=== PATIENT | female | born 1970 | race Caucasian/White ===

== ENCOUNTER → 2016-09-21 | Outpatient (CLI) | payer BC ==
[2016-09-21 08:03] LABS: Basophils % (A) 1 %; CH 26.3; CHCM 32.2; Eosinophils # (A) 0.2 k/uL (0-0.7); Eosinophils % (A) 3 %; HCT 36.8 % (34.0-46.0); HDW 2.28; HGB 12.3 gm/dL (11.4-16.0); Luc # (Auto) 0.24; Luc % (Auto) 4; Lymphocytes # (A) 2.3 k/uL (1.0-4.8); Lymphocytes % (A) 35 %; MCH 27.5 pg (25.0-35.0); MCHC 33.6 g/dL (31.0-37.0); MCV 82.1 fL (80.0-100.0); Mean Platelet Volume 7.4; Monocytes # (A) 0.4 k/uL (0-1.0); Monocytes % (A) 6 %; Neutrophils # (A) 3.5 k/uL (1.3-7.7); Neutrophils % (A) 52 %; RBC 4.48 m/uL (3.80-5.40); RDW 14.3 % (11.5-15.5); WBC 6.7 k/uL (3.8-10.6)
[2016-09-21 11:47] LABS: ALT 38 U/L (9-52); AST 24 U/L (14-36); Alkaline Phosphatase 67 U/L (38-126); Anion Gap 10 mmol/L; Blood Urea Nitrogen 15 mg/dL (7-17); Calcium 9.7 mg/dL (8.4-10.2); Carbon Dioxide 26 mmol/L (22-30); Chloride 105 mmol/L (98-107); Cholesterol 212 mg/dL (<200); Glucose 105 mg/dL (74-99); HDL Cholesterol 71 mg/dL (40-60); Non-African American GFR(MDRD) >60 (>60 ml/min/1.73 sqM); Sodium 141 mmol/L (137-145); Total Bilirubin 0.6 mg/dL (0.2-1.3); Triglycerides 101 mg/dL (<150)
== END | disposition home or self-care (01) ==
LOC: LABWHC1 07:45
PROVIDERS: ATTEND Family Medicine
DX: E03.8 Other specified hypothyroidism (principal); R07.9 Chest pain, unspecified
CPT/HCPCS: 36415; 80053; 80061; 83090; 84439; 84443; 85025; 86141

== ENCOUNTER → 2016-09-30 | Outpatient (CLI) | payer BC ==
--- NOTE | 2016-09-30 18:26 | P.STRESS ---
- Stress Test Note Stress Test Results/Findings: Exam Performed: stress test Exam Date: 09/30/16 Height: 5 ft 7 in Weight: 106.594 kg Protocol: nato Stage: 3 Duration of Exercise: 7:00 Resting Heart Rate: 81 Resting Blood Pressure: 129/86 Maximum Achieved Heart Rate: 159 Maximum Achieved Blood Pressure: 191/67 85% PMHR: 148 100% PMHR: 174 METS: 8.5 Technologist Comment: Stress Test Results/Findings: Baseline rhythm is sinus mechanism, rate of 81, normal axis and intervals. Patient exercised for 7 minutes on Nato protocol, reaching a peak rate of 159 bpm, equal to 91% maximum predicted heart rate. Test was terminated secondary to fatigue, there was no chest pain. Peak blood pressure 191/67 mmHg. EKG monitoring shows [address] segment depression at peak exercise that resolved in recovery. Impression: 1. Average exercise tolerance with no chest pain. 2. Borderline positive EKG stress testing was [address] segment depression. 3. If clinically indicated and imaging stress test would be helpful to further evaluate the findings.
== END | disposition home or self-care (01) ==
LOC: RADNMMAIN 11:03
PROVIDERS: ATTEND Family Medicine
DX: R07.9 Chest pain, unspecified (principal)
CPT/HCPCS: 93017

== ENCOUNTER → 2016-10-10 | Outpatient (CLI) | payer BC ==
--- NOTE | 2016-10-10 11:55 | P.STRESS ---
- Stress Test Note Stress Test Results/Findings: Exam Performed: NM stress cardiolite complete Exam Date: 10/10/16 Reason for Exam: Chest pain Height: 5 ft 7 in Weight: 106.594 kg Protocol: Ori Cardiolite Stage: 2 Duration of Exercise: 8:00 Resting Heart Rate: 61 Resting Blood Pressure: 118/77 Maximum Achieved Heart Rate: 155 Maximum Achieved Blood Pressure: 163/68 85% PMHR: 148 100% PMHR: 174 METS: 9.7 Technologist Comment: Stress Test Results/Findings: Resting EKG shows a normal sinus rhythm with normal IN interval and QRS duration and normal ST-T abuse. No ST segment depression suggestive ischemia is noted. Patient did not complain of any chest pain during the test. Isolated PVCs were noted Conclusion EKG portion of the stress test is not suggestive ischemia. Patient's exercise tolerance is normal. Patient did not complain of any anginal pain during the test. Isolated PVCs were noted. The results of the nuclear study will follow.
--- NOTE | 2016-10-10 12:08 | NM ---
EXAMINATION TYPE: NM stress cardiolite complete DATE OF EXAM: 10/10/2016 COMPARISON: NONE HISTORY: Family history of heart attack presents with chest tightness and difficulty in breathing. TECHNIQUE: After the intravenous administration of 10.9 mCi Tc 99m Sestamibi - Rest images obtained 45 minutes post injection. The patient exercised using a ELLEN protocol and 1 minute prior to peak exercise was injected with 27.2 mCi Tc 99m Sestamibi - Stress images obtained 10 minutes post injecti on. FINDINGS: Targeted heart rate was achieved during performance of the study. Review of stress and rest SPECT noé ges demonstrates no distinct perfusion abnormality. Diminished color intensity involving anterior wa ll is seen on stress and rest images may be artifactual, old infarct is not entirely excluded. Consid er EKG correlation. Gated analysis shows normal wall motion with an estimated left ventricular ejecti on fraction of 62 %. IMPRESSION: No convincing scintigraphic evidence for reversible ischemia
--- NOTE | 2016-10-10 15:00 | EST ---
Stress Test Results/Findings: Exam Performed: NM stress cardiolite complete Exam Date: 10/10/16 Reason for Exam: Chest pain Height: 5 ft 7 in Weight: 106.594 kg Protocol: Ori Cardiolite Stage: 2 Duration of Exercise: 8:00 Resting Heart Rate: 61 Resting Blood Pressure: 118/77 Maximum Achieved Heart Rate: 155 Maximum Achieved Blood Pressure: 163/68 85% PMHR: 148 100% PMHR: 174 METS: 9.7 Technologist Comment: Stress Test Results/Findings: Resting EKG shows a normal sinus rhythm with normal AL interval and QRS duration and normal ST-T abuse. No ST segment depression suggestive ischemia is noted. Patient did not complain of any chest pain during the test. Isolated PVCs were noted Conclusion EKG portion of the stress test is not suggestive ischemia. Patient's exercise tolerance is normal. Patient did not complain of any anginal pain during the test. Isolated PVCs were noted. The results of the nuclear study will follow. MARISEL
== END | disposition home or self-care (01) ==
LOC: RADNMMAIN 08:46
PROVIDERS: ATTEND Family Medicine
DX: R94.39 Abnormal result of other cardiovascular function study (principal)
CPT/HCPCS: 93017; 78452; A9500

== ENCOUNTER → 2017-11-09 | Outpatient (CLI) | payer BC ==
--- NOTE | 2017-11-09 15:55 | XR ---
EXAMINATION TYPE: XR knee complete LT DATE OF EXAM: 11/09/2017 CLINICAL HISTORY: pain TECHNIQUE: Three views of the left knee are obtained. COMPARISON: None. FINDINGS: There is no acute fracture/dislocation. The tri-compartment joint spaces appear mildly na rrowed. The overlying soft tissue appears unremarkable. Suprapatellar joint effusion noted. IMPRESSION: There is no acute fracture or dislocation ICD 10 NO FRACTURE, INITIAL EVALUATION
--- NOTE | 2017-11-14 11:37 | MM ---
Reason for exam: screening (asymptomatic). Last mammogram was performed 2 years and 7 months ago. History: Family history of breast cancer in maternal aunt at age 65. Benign US biopsy breast VAD LT of the left breast, July 26, 2013. Took hormonal contraceptives for 7 years. Physical Findings: A clinical breast exam by your physician is recommended on an annual basis and results should be correlated with mammographic findings. MG Screening Mammo w CAD Bilateral CC and MLO view(s) were taken. Prior study comparison: April 01, 2015, bilateral MG 3d diag mammo w/cad [facility]. July 26, 2013, left breast MG diagnostic mammo LT wo CAD. The breast tissue is heterogeneously dense. This may lower the sensitivity of mammography. Previous mammotome biopsy in the left breast. No significant changes when compared with prior studies. ASSESSMENT: Negative, BI-RAD 1 RECOMMENDATION: Routine screening mammogram of both breasts in 1 year. Patient should continue monthly self breast exams. A negative report should not preclude additional follow up of suspicious palpable abnormalities.
== END | disposition home or self-care (01) ==
LOC: RADMAMWWP 15:35
PROVIDERS: ATTEND Family Medicine
DX: Z12.31 Encounter for screening mammogram for malignant neoplasm of breast (principal); M25.562 Pain in left knee
CPT/HCPCS: 77067

== ENCOUNTER → 2021-11-12 | Outpatient (CLI) | payer BC ==
--- NOTE | 2021-11-16 09:52 | MM ---
Reason for Exam: Screening (asymptomatic). Last mammogram was performed 4 year(s) and 1 month(s) ago. Patient History: Menarche at age 13. First Full-Term at age 29. Patient used Hormonal Contraceptives for 7 years. 07/26/2013, Benign Core Biopsy on the left side. Maternal aunt had breast cancer, age 65. Last menstrual period: 11/03/2021 Risk Values: [place] 5 year model risk: 1.3%. NCI Lifetime model risk: 11.4%. Prior Study Comparison: 07/26/2013 Left Diagnostic Mammogram, [facility]. 04/01/2015 Bilateral Diagnostic Mammogram, [facility]. 11/09/2017 Bilateral Screening Mammogram, [facility]. Tissue Density: The breast tissue is extremely dense which could obscure a lesion on mammography. Findings: Analyzed By CAD. No suspicious groups of microcalcifications, spiculated or lobular masses, architectural distortion or other secondary signs of malignancy are mammographically apparent. Overall Assessment: Benign, BI-RAD 2 Management: Screening Mammogram of both breasts in 1 year. A negative mammogram report should not preclude additional follow up of suspicious palpable abnormalities. Patient should continue monthly self breast exam. A clinical breast exam by your physician is recommended on an annual basis and results should be correlated with mammographic findings. Electronically signed and approved by: Bravo Michelle D.O. Radiologis
== END | disposition home or self-care (01) ==
LOC: RADMAMWWP 14:46
PROVIDERS: ATTEND Family Medicine
DX: Z12.31 Encounter for screening mammogram for malignant neoplasm of breast (principal); Z80.3 Family history of malignant neoplasm of breast
CPT/HCPCS: 77067

== ENCOUNTER → 2022-08-18 | Outpatient (CLI) | payer BC ==
[2022-08-18 22:49] LABS: HCT 43.2 % (37.2-46.3); HGB 13.1 d/dL (12.0-15.0); MCH 25.5 pg (27.0-32.0); MCHC 30.3 d/dL (32.0-37.0); MCV 84.2 FL (80.0-97.0); Mean Platelet Volume 10.1 FL (9.5-12.2); NRBC Per 100 WBC 0 X 10*3/uL (0.00-0.01); Platelet Count 409 X 10*3/uL (140-440); RBC 5.13 X 10*6/uL (4.10-5.20); RDW 15.2 % (11.5-14.5); WBC 8.32 X 10*3/uL (4.50-10.00)
[2022-08-19 03:21] LABS: ALT 31 U/L (8-44); AST 22 U/L (13-35); Albumin 4.6 d/dL (3.8-4.9); Albumin/Globulin Ratio 1.59 Ratio (1.60-3.17); Alkaline Phosphatase 89 U/L (41-126); Blood Urea Nitrogen 18.5 mg/dL (9.0-27.0); Chloride 98 mmol/L (96-109); Globulin 2.9 d/dL (1.6-3.3); Glucose 98 mg/dL (70-110); Iron 42 UG/DL (50-170); Potassium 4.3 mmol/L (3.5-5.5); Sodium 139 mmol/L (135-145); Total Bilirubin 0.3 mg/dL (0.3-1.2); Total Protein 7.5 d/dL (6.2-8.2)
== END | disposition home or self-care (01) ==
LOC: LABWHC1 14:21
PROVIDERS: ATTEND Surgery
DX: Z71.51 Drug abuse counseling and surveillance of drug abuser (principal); E66.01 Morbid (severe) obesity due to excess calories; K90.89 Other intestinal malabsorption; E55.9 Vitamin D deficiency, unspecified; R00.1 Bradycardia, unspecified
CPT/HCPCS: 36415; 80053; 80323; 82306; 82607; 82746; 83036; 83540; 84425; 85027; 93005

== ENCOUNTER → 2022-08-18 | Outpatient (CLI) | payer BC ==
[2022-08-18 13:06] VITALS: BP 129/86; PULSE 74; RESP 16; TEMP 98; BMI 41.6
--- NOTE | 2022-08-18 16:29 | P.HPBAR ---
Bariatric H&P - History & Physicial H&P Date: 08/18/22 History & Physicial: Visit/CC: Initial Consult Patient initial contact: Initial weight: 120.656 kg Initial weight in pounds: 266.00 Height: 5 ft 7 in Initial BMI: 41.6 Last weight: Current weight: 120.656 kg Current weight in pounds: 266.00 Current BMI: 41.6 Latta body weight (based on NIH guidelines): 61.235 kg Excess body weight loss: 0.0% The patient is a 52 year-old F who presents for Bariatric Assessment. Patient presents to discuss bariatric surgery options. BMI 41.6. Patient with history of GERD that is mild, hypercholesterolemia, hypothyroidism, depression. Only surgical history is breast biopsy in the past. No tobacco use. No history of DVT or dysphagia. Patient is a teacher Review of Systems The patient denies any acute changes in vision or hearing, no dysphagia or odynophagia, no chest pain or shortness of breath, no dysuria or hematuria, no headache, no runny nose, no rectal bleeding or melena, no unexplained weight loss Past Medical History Past Medical History: Thyroid Disorder Additional Past Medical History / Comment(s): HX OF GESTATIONAL DIABETES, "TOE FUNGUS" History of Any Multi-Drug Resistant Organisms: None Reported, ESBL Year Discovered:: 08/31/20 MDRO Source:: ESBL URINE Additional Past Surgical History / Comment(s): LEFT BREAST BX . Additional Past Anesthesia/Blood Transfusion Reaction / Comm: HAS NEVER RECEIVED ANESTHESIA Smoking Status: Unknown if ever smoked - Past Family History Sister(s) Family Medical History: Deep Vein Thrombosis (DVT) Surgical - Exam Vital Signs Temp Pulse Resp BP 98 F 74 16 129/86 08/18/22 13:04 08/18/22 13:04 08/18/22 13:04 08/18/22 13:04 Physical exam: General: Well-developed, well-nourished HEENT: Normocephalic, sclerae nonicteric Abdomen: Nontender, nondistended Extremities: No edema Neuro: Alert and oriented Bariatric Assessment & Plan (1) Morbid obesity with BMI of 40.0-44.9, adult Narrative/Plan: 52-year-old female with morbid obesity and associated comorbidities. Options of bariatric surgery reviewed in detail with the patient. Discussed laparoscopic sleeve gastrectomy and gastric bypass and the associated risks. Anticipated average weight loss and postoperative course reviewed as well. Patient remains interested in sleeve gastrectomy at this time. We will plan preoperative EGD. We'll obtain appropriate documentation from primary care team. Patient will have psychological evaluation scheduled. We will see patient back in office following upper endoscopy. Status: Acute Bariatric Checklist Checklist: Plan: Checklist: EGD: 1. Hiatal hernia: 2. H. Pylori: HgbA1c: Vitamin D: Smoking: Never smoker Primary care physician referral: Dulce Maria Aguila Psychiatry clearance: Cardiology clearance: Sleep study: Diet journal: VTE risk score: VTE risk level: Rehab needs at discharge:
== END ==
LOC: BARWHC3 12:49
PROVIDERS: ATTEND Surgery
DX: E66.01 Morbid (severe) obesity due to excess calories (principal); Z68.41 Body mass index [BMI] 40.0-44.9, adult; K21.9 Gastro-esophageal reflux disease without esophagitis; E07.9 Disorder of thyroid, unspecified; Z98.84 Bariatric surgery status
CPT/HCPCS: 99202

== ENCOUNTER 2022-10-04 06:41 | Day surgery (SDC) | payer BC ==
[2022-10-03 08:38] VITALS: BMI 41.8
[~2022-10-04 06:41] MED LIST: LACTATED RINGERS 1,000 ML IV SCH; LIDOCAINE 1% (10MG/ML) FOR IV START INTRADERMA PRN
[2022-10-04] MEDS ORDERED: ONDANSETRON 4 MG/2 ML VIAL IVP PRN (07:00)
[2022-10-04 07:27] VITALS: TEMP 97.1
[2022-10-04] MEDS ORDERED: LIDOCAINE 2% INJ 20 MG/ML (2 ML VIAL) ONE (07:37)
[2022-10-04] MEDS ORDERED: PROPOFOL 10 MG/ML 20 ML VIAL IV ONE (07:37)
--- NOTE | 2022-10-04 07:40 | P.GSHP ---
History of Present Illness H&P Date: 10/04/22 Chief Complaint: GERD Eag-imto-ros female here today for upper endoscopy. Patient with complaints of intermittent reflux that is mild. Mostly during her . Patient is being evaluated for possible sleeve gastrectomy. No other changes to the recent history and physical Past Medical History Past Medical History: Hyperlipidemia, Thyroid Disorder Additional Past Medical History / Comment(s): HX OF GESTATIONAL DIABETES, "TOE FUNGUS" History of Any Multi-Drug Resistant Organisms: None Reported, ESBL Date of last positivie culture/infection: 08/31/20 MDRO Source:: ESBL URINE Additional Past Surgical History / Comment(s): LEFT BREAST BX . Additional Past Anesthesia/Blood Transfusion Reaction / Comment(s): HAS NEVER RECEIVED ANESTHESIA Smoking Status: Never smoker, Unknown if ever smoked - Past Family History Sister(s) Family Medical History: Deep Vein Thrombosis (DVT) Medications and Allergies Home Medications Medication Instructions Recorded Confirmed Type Levothyroxine Sodium [Synthroid] 25 mcg PO DAILY 09/24/13 10/03/22 History Sertraline [Zoloft] 200 mg PO DAILY 08/18/22 10/03/22 History Rosuvastatin [Crestor] 5 mg PO DAILY 10/03/22 10/03/22 History buPROPion [Wellbutrin] 150 mg PO DAILY 10/03/22 10/03/22 History Allergies Allergy/AdvReac Type Severity Reaction Status Date / Time No Known Allergies Allergy Verified 10/04/22 07:12 Surgical - Exam Vital Signs Temp Pulse Resp BP Pulse Ox 97.1 F L 66 20 128/68 95 10/04/22 07:25 10/04/22 07:25 10/04/22 07:25 10/04/22 07:25 10/04/22 07:25 Physical exam: General: Well-developed, well-nourished HEENT: Normocephalic, sclerae nonicteric Abdomen: Nontender, nondistended Extremities: No edema Neuro: Alert and oriented Assessment and Plan (1) GERD (gastroesophageal reflux disease) Narrative/Plan: Will proceed with upper endoscopy at this time Current Visit: Yes Status: Acute Code(s): K21.9 - GASTRO-ESOPHAGEAL REFLUX DISEASE WITHOUT ESOPHAGITIS SNOMED Code(s): 476967842
--- NOTE | 2022-10-04 07:47 | P.PCN ---
Date of Procedure: 10/04/22 Procedure(s) Performed: Preoperative Dx: GERD, presurgical Postoperative Dx: Mild gastritis Procedure: EGD with Bx Anesthesia: Sedation Endoscopist: Dr. Aguila Specimens: Antrum Endoscopic Procedure: The patient was on the endoscopy table in the left decubitus position. The Olympus gastroscope was inserted into the oropharynx and passed under direct visualization to the region of the third portion of the duodenum. From that point the scope was slowly withdrawn inspecting all surfaces carefully. There were no neoplastic inflammatory or polypoid lesions throughout the duodenum. The pylorus was widely patent. The stomach was carefully inspected. There was mild gastritis present. A biopsy of the antrum took place to rule out H. pylori. Retroflexion revealed a normal hiatus. The esophagus was then carefully examined. There were no neoplastic inflammatory or polypoid lesions throughout the visualized esophagus. The patient was then taken to the recovery room in stable condition per anesthesia guidelines. Recommendations: Await biopsy results. Follow-up bariatric clinic.
[2022-10-04 08:17] VITALS: BP 133/75; PULSE 57; RESP 18
== END 2022-10-04 08:27 | disposition home or self-care (01) ==
LOC: ORWHC2ENDO 06:41
PROVIDERS: ATTEND Surgery
DX: K29.50 Unspecified chronic gastritis without bleeding (principal); K21.9 Gastro-esophageal reflux disease without esophagitis; E78.5 Hyperlipidemia, unspecified; E07.9 Disorder of thyroid, unspecified; Z86.19 Personal history of other infectious and parasitic diseases; Z98.890 Other specified postprocedural states; Z82.49 Family history of ischemic heart disease and other diseases of the circulatory system; Z79.890 Hormone replacement therapy; Z79.899 Other long term (current) drug therapy
CPT/HCPCS: 81025; 88305; 43239; J2704; J2001

== ENCOUNTER → 2022-10-31 | Outpatient (CLI) | payer BC ==
[2022-10-31 10:35] VITALS: BMI 42.1
== END ==
LOC: BARWHC3 08:46
PROVIDERS: ATTEND Surgery
DX: E66.01 Morbid (severe) obesity due to excess calories (principal); Z71.3 Dietary counseling and surveillance; Z68.41 Body mass index [BMI] 40.0-44.9, adult
CPT/HCPCS: 97804

== ENCOUNTER → 2022-11-08 | Outpatient (CLI) | payer BC ==
[2022-11-08 16:38] VITALS: BP 147/87; PULSE 84; BMI 42.0
--- NOTE | 2022-11-08 16:55 | P.BASOAP ---
Subjective Progress Note Date: 11/08/22 Principal diagnosis: Morbid obesity Patient returns for recheck after recent EGD. EGD showed mild gastritis. Biopsies negative. Weights about the same at 268. No other changes to her history and physical. Patient would like to proceed with surgery before the end of the year. Objective - Vital Signs Vital signs: Vital Signs Temp Pulse 84 11/08/22 16:36 Resp BP 147/87 11/08/22 16:36 Pulse Ox FiO2 Intake & Output 11/07/22 11/08/22 11/08/22 18:59 06:59 18:59 Weight 121.563 kg - Exam Abdomen: Soft, nontender, nondistended Assessment/Plan (1) Morbid obesity with BMI of 40.0-44.9, adult Narrative/Plan: 53-year-old female with morbid obesity. We'll tenderly scheduled for laparoscopic robotic-assisted sleeve gastrectomy in early February. The risks of bleeding, infection, stenosis, stricture, leak, abscess, fistula formation, peritonitis, poor weight loss, reflux, vomiting, conversion to an open procedure, aborting sleeve gastrectomy, HI, PE, DVT, and were discussed. The patient understands and wishes to proceed. Plan: Date: 11/08/22 Initial Weight: 120.656 kg Initial BMI: 41.6 Current Weight: 121.563 kg Current BMI: 42.0 Type of Surgery: Total Volume in Band: Previous Volume: Volume Removed: Volume Added: Band Size:
== END ==
LOC: BARWHC3 15:43
PROVIDERS: ATTEND Surgery
DX: E66.01 Morbid (severe) obesity due to excess calories (principal); Z68.41 Body mass index [BMI] 40.0-44.9, adult
CPT/HCPCS: 99211

== ENCOUNTER → 2023-02-10 | Outpatient (CLI) | payer BC ==
[2023-02-11 02:22] LABS: Basophils # (A) 0.05 X 10*3/uL (0.00-0.10); Basophils % (A) 0.6 %; Eosinophils # (A) 0.12 X 10*3/uL (0.04-0.35); Eosinophils % (A) 1.4 %; HCT 39.9 % (37.2-46.3); HGB 12.2 g/dL (12.0-15.0); Lymphocytes # (A) 2.05 X 10*3/uL (0.90-5.00); Lymphocytes % (A) 24.4 %; MCH 25.4 pg (27.0-32.0); MCHC 30.6 g/dL (32.0-37.0); Mean Platelet Volume 9.9 FL (9.5-12.2); Monocytes # (A) 0.55 X 10*3/uL (0.20-1.00); Monocytes % (A) 6.5 %; NRBC Per 100 WBC 0 X 10*3/uL (0.00-0.01); Neutrophils # (A) 5.59 X 10*3/uL (1.80-7.70); Neutrophils % (A) 66.6 %; Platelet Count 424 X 10*3/uL (140-440); RBC 4.81 X 10*6/uL (4.10-5.20); RDW 14.8 % (11.5-14.5)
[2023-02-11 02:49] LABS: ALT 29 U/L (8-44); AST 24 U/L (13-35); Albumin 4.3 g/dL (3.8-4.9); Albumin/Globulin Ratio 1.54 Ratio (1.60-3.17); Alkaline Phosphatase 75 U/L (41-126); BUN/Creat Ratio 21.89 Ratio (12.00-20.00); Blood Urea Nitrogen 19.7 mg/dL (9.0-27.0); Calcium 9.9 mg/dL (8.7-10.3); Chloride 101 mmol/L (96-109); Globulin 2.8 g/dL (1.6-3.3); Glucose 76 mg/dL (70-110); Potassium 4.2 mmol/L (3.5-5.5); Sodium 139 mmol/L (135-145); Total Bilirubin 0.3 mg/dL (0.3-1.2); Total Protein 7.1 g/dL (6.2-8.2)
== END | disposition home or self-care (01) ==
LOC: LABPAT 15:50
PROVIDERS: ATTEND Surgery
DX: Z00.00 Encounter for general adult medical examination without abnormal findings (principal)
CPT/HCPCS: 80053; 85025; 86850; 86900; 86901

== ENCOUNTER 2023-02-13 12:40 | Observation (INO) | payer BC ==
--- NOTE | 2023-02-13 08:44 | P.GSHP ---
History of Present Illness H&P Date: 02/13/23 Chief Complaint: Morbid obesity 52-year-old female here for elective sleeve gastrectomy. Patient first seen in the bariatric center in October. Patient with comorbidities including hypercholesterolemia GERD hypothyroidism depression. No tobacco use. No history of DVT or dysphagia. Underwent subsequent EGD showing mild gastritis. BMI 41 now 42. Past Medical History Past Medical History: GERD/Reflux, Hyperlipidemia, Osteoarthritis (OA), Thyroid Disorder Additional Past Medical History / Comment(s): HX OF GESTATIONAL DIABETES, left middle toe is bruised from dropping something on it History of Any Multi-Drug Resistant Organisms: None Reported, ESBL Date of last positivie culture/infection: 08/31/20 MDRO Source:: ESBL URINE Past Surgical History: Breast Surgery Additional Past Surgical History / Comment(s): LEFT BREAST BX., EGD Past Anesthesia/Blood Transfusion Reactions: No Reported Reaction Additional Past Anesthesia/Blood Transfusion Reaction / Comment(s): HAS NEVER RECEIVED ANESTHESIA Smoking Status: Never smoker - Past Family History Sister(s) Family Medical History: Deep Vein Thrombosis (DVT) Medications and Allergies Home Medications Medication Instructions Recorded Confirmed Type Levothyroxine Sodium [Synthroid] 25 mcg PO DAILY 09/24/13 02/08/23 History Sertraline [Zoloft] 200 mg PO DAILY 08/18/22 02/08/23 History Rosuvastatin [Crestor] 5 mg PO DAILY 10/03/22 02/08/23 History buPROPion [Wellbutrin] 150 mg PO DAILY 10/03/22 02/08/23 History Allergies Allergy/AdvReac Type Severity Reaction Status Date / Time No Known Allergies Allergy Verified 02/08/23 15:31 Surgical - Exam Physical exam: General: Well-developed, well-nourished HEENT: Normocephalic, sclerae nonicteric Abdomen: Nontender, nondistended Extremities: No edema Neuro: Alert and oriented Assessment and Plan (1) Morbid obesity with BMI of 40.0-44.9, adult Narrative/Plan: 52-year-old female with morbid obesity. We'll proceed with the da Poonam assisted laparoscopic sleeve gastrectomy, possible open at this time. The risks of bleeding, infection, stenosis, stricture, leak, abscess, fistula formation, peritonitis, poor weight loss, reflux, vomiting, conversion to an open proc edure, aborting sleeve gastrectomy, DE, PE, DVT, and were discussed. The patient understands and wishes to proceed. Status: Acute Code(s): E66.01 - MORBID (SEVERE) OBESITY DUE TO EXCESS CALORIES; Z68.41 - BODY MASS INDEX [BMI] 40.0-44.9, ADULT SNOMED Code(s): 473233567
[~2023-02-13 12:40] MED LIST changes: +ACETAMINOPHEN TAB 500 MG TAB PO PRN; +ENOXAPARIN 40 MG/0.4 ML SYRINGE SQ PRN; -LIDOCAINE 1% (10MG/ML) FOR IV START INTRADERMA PRN; +MIDAZOLAM 2 MG/2 ML VIAL IV PRN; +SCOPOLAMINE 1 MG/72 HR PATCH TRANSDERM ONE; +ceFAZolin 3 GM in SODIUM CHLORIDE 0.9% 100 ML IVPB PRN
[2023-02-13] MEDS: DEXAMETHASONE SOD PHOSPHATE 4 MG/ML 1 ML VIAL IV ONE (13:59)
[2023-02-13] MEDS ORDERED: FAMOTIDINE 20 MG/2 ML VIAL IVP ONE (13:59)
[2023-02-13] MEDS: ONDANSETRON 4 MG/2 ML VIAL IVP ONE (13:59)
[2023-02-13] MEDS ORDERED: LIDOCAINE 1% INJ 10MG/ML (20 ML MDV) ONE (14:30)
[2023-02-13] MEDS ORDERED: GLYCOPYRROLATE 0.2 MG/ML 2 ML VIAL ONE (14:30)
[2023-02-13] MEDS ORDERED: ROCURONIUM 10 MG/ML (5 ML VIAL) IV ONE (14:30)
[2023-02-13] MEDS ORDERED: HYDROmorphone (PF) 1 MG/ML ONE (14:30)
[2023-02-13] MEDS ORDERED: fentaNYL (PF) 50 MCG/ML 2 ML AMP ONE (14:30)
[2023-02-13] MEDS ORDERED: NEOSTIGMINE 1 MG/ML 10 ML VIAL ONE (14:30)
[2023-02-13] MEDS ORDERED: SUCCINYLCHOLINE CHLORIDE 200 MG/10 ML VIAL IV ONE (14:30)
[2023-02-13] MEDS ORDERED: MIDAZOLAM 2 MG/2 ML VIAL ONE (14:30)
[2023-02-13] MEDS ORDERED: PROPOFOL 10 MG/ML 20 ML VIAL IV ONE (14:30)
[2023-02-13] MEDS ORDERED: BUPIVACAINE (PF) 0.25% 30 ML VIAL SQ ONE (14:34)
[2023-02-13] MEDS ORDERED: HYDROmorphone 1 MG/ML 1 ML SYRINGE IVP PRN (16:50)
[2023-02-13] MEDS ORDERED: diphenhydrAMINE 50 MG/ML 1 ML VIAL IVP PRN (16:50)
[2023-02-13] MEDS ORDERED: DEXAMETHASONE SOD PHOSPHATE 4 MG/ML 1 ML VIAL IVP PRN (16:50)
[2023-02-13] MEDS ORDERED: NALOXONE 0.4 MG/ML 1 ML VIAL IV PRN (16:50)
--- NOTE | 2023-02-13 16:58 | P.OP ---
Date of Procedure: 02/13/23 Procedure(s) Performed: PREOPERATIVE DIAGNOSIS: Morbid obesity, GERD, hypercholesterolemia POSTOPERATIVE DIAGNOSIS: Same PROCEDURE: Da Poonam assisted laparoscopic sleeve gastrectomy SURGEON: Mingo EBL: 15 mL ANESTHESIA: General COMPLICATIONS: None OPERATIVE PROCEDURE: Patient was placed in the operating table in the supine position. The patient was then placed under general anesthesia at that time. The abdomen was prepped and draped in the usual sterile fashion. A 5 mm optical trocar was placed in the left upper quadrant 20 cm inferior to the xiphoid process. Insufflation took place up to 15 mmHg. No adhesions were seen. A 5 mm subxiphoid incision was made and the medium Reginald retractor was used to elevate the left lobe of liver anteriorly. This was held in place using the fixed arm retractor. An additional 12 mm trocar was placed in the right paramedian location and 2 additional 8 mm trochars were placed in the left upper quadrant one medial and one lateral to the initially placed optical trocar. All of these trochars were placed along the same plane. The initial 5 was then switched to an 8 mm trocar. The robot was then docked appropriately. The 8 mm camera was placed in the left paramedian trocar site down viewing. A fenestrated bipolar was placed in arm 1, arm 3 had the vessel sealer, arm 4 had the small grasper retractor. The hiatus was inspected and there was no visible hiatal hernia. At that point I moved to the distal aspect of the greater curvature the stomach. The short gastric vasculature were divided using the vessel sealer. This dissection took place distally until we were 4 cm from the pylorus. The posterior adhesions were divided as well. The dissection then took place proximally along the stomach until the posterior short gastrics were divided and the fundus of the stomach was fully mobilized. Once the stomach was fully mobilized the blunt tipped 40-Barbadian bougie dilator was advanced into the stomach and advanced all the way to the prepyloric location. The patient's stomach by palpation seemed to be of average thickness. The first firing of the stapler was a black load with the staple line reinforcement. A second load was green load with staple line reinforcement. Third load was blue load with staple line reinforcement. On the fourth firing of the load initially it seemed to be firing and cutting properly but approximately 1/3-1[address] the staple load I noticed that the staple line was bunching together and it appeared the blade was not cutting the tissue. The stapler was then opened. A small defect in the wall of the stomach was noted. I was able to place a new blue load without staple line reinforcement medially and this appeared to close the defect Solano and I was able to visualize laila along the length of the sleeve at that point. 2 subsequent firings of the blue load stapler took place completing the gastrectomy. Staple line reinforcement was again used on the fourth firing of the blue load. The last firing the stapler did not use staple line reinforcement as it was only traversing less than a centimeter of the stomach. The stomach was then placed in the right upper quadrant after it was fully excised. The oral gastric tube was reinserted. The stomach was insufflated with approximately 100 mL of methylene blue. No evidence of leak or obstruction was seen. Pressure was then dropped to 8 mm for 2-3 minutes. The staple line was inspected and no bleeding was seen. I decided to imbricate the staple line over the section where the misfiring of the stapler took place. This covered a length of approximately 2-3 cm. This was an absorbable 30V lock suture. This did not appear to overly narrow the sleeve. I was able to advance an oral gastric tube through that section without meeting resistance. Tisseel fibrin glue was then used along the length of the staple line. The robot was then undocked. The da Poonam laparoscope was used and the stomach was removed from the 12 mm trocar site without difficulty. The fascia at the 12mm site was closed using [id number] 0 Vicryl sutures with the laparoscopic suture passer and Hari Kolby technique. The insufflation was evacuated. The skin at all 5 incisions were closed using 4-0 Monocryl sutures. Skin glue was then applied. DISPOSITION: Stable to recovery room. Operative findings discussed with the patient's .
[2023-02-13] MEDS: HYDROmorphone 0.5 MG/0.5 ML SYRINGE IVP PRN ×3 (17:23→22:36)
[2023-02-13] MEDS: ONDANSETRON 4 MG/2 ML VIAL IVP PRN (18:21)
[2023-02-13] MEDS: ACETAMINOPHEN IV (For NPO) 1,000 MG in EMPTY BAG 1 BAG IVPB SCH ×2 (18:22→18:36)
[2023-02-13] MEDS ORDERED: LACTATED RINGERS 1,000 ML IV ONE ×2 (18:24)
[2023-02-13] MEDS: ALBUTEROL NEBULIZED 2.5 MG/3 ML INHALATION SCH (18:45)
[2023-02-13 19:12] LABS: Glucose,Whole Blood 134 mg/dL (70-110)
[2023-02-13] MEDS: SIMETHICONE 80 MG CHEWABLE PO PRN (21:02)
[2023-02-13] MEDS: 0.9% NACL WITH KCL 20 MEQ/L 1,000 ML IV SCH (22:36)
[2023-02-14] MEDS: ONDANSETRON 4 MG/2 ML VIAL IVP ONE (00:03)
[2023-02-14] MEDS: DEXAMETHASONE SOD PHOSPHATE 4 MG/ML 1 ML VIAL IV ONE (00:03)
[2023-02-14] MEDS: ONDANSETRON 4 MG/2 ML VIAL IVP PRN ×2 (00:28→13:38)
[2023-02-14] MEDS: ACETAMINOPHEN IV (For NPO) 1,000 MG in EMPTY BAG 1 BAG IVPB SCH ×5 (00:29→23:28)
[2023-02-14] MEDS: SIMETHICONE 80 MG CHEWABLE PO PRN ×2 (02:24→17:34)
[2023-02-14] MEDS: HYDROmorphone 0.5 MG/0.5 ML SYRINGE IVP PRN (03:04)
[2023-02-14] MEDS: 0.9% NACL WITH KCL 20 MEQ/L 1,000 ML IV SCH ×3 (05:35→17:35)
[2023-02-14] MEDS: HYOSCYAMINE ORAL DROPS 1.875 MG/15 ML BOTTLE PO PRN ×2 (05:37→17:34)
[2023-02-14] MEDS: ENOXAPARIN 40 MG/0.4 ML SYRINGE SQ SCH ×2 (06:29→17:34)
[2023-02-14] MEDS: PANTOPRAZOLE 40 MG/10 ML VIAL IV SCH (07:53)
[2023-02-14] MEDS: ALBUTEROL NEBULIZED 2.5 MG/3 ML INHALATION SCH ×4 (08:20→20:52)
[2023-02-14] MEDS: KETOROLAC 15 MG/ML 1 ML VIAL IVP SCH ×4 (08:37→23:29)
[2023-02-14 10:53] LABS: Basophils # (A) 0.04 X 10*3/uL (0.00-0.10); Basophils % (A) 0.3 %; Eosinophils # (A) 0 X 10*3/uL (0.04-0.35); Eosinophils % (A) 0 %; HGB 11.8 g/dL (12.0-15.0); Lymphocytes # (A) 1.59 X 10*3/uL (0.90-5.00); Lymphocytes % (A) 12.7 %; MCH 26.3 pg (27.0-32.0); MCHC 31.9 g/dL (32.0-37.0); MCV 82.4 FL (80.0-97.0); Mean Platelet Volume 10.2 FL (9.5-12.2); Monocytes # (A) 0.84 X 10*3/uL (0.20-1.00); Monocytes % (A) 6.7 %; NRBC Per 100 WBC 0 X 10*3/uL (0.00-0.01); Neutrophils # (A) 9.97 X 10*3/uL (1.80-7.70); Neutrophils % (A) 79.8 %; Platelet Count 431 X 10*3/uL (140-440); RBC 4.49 X 10*6/uL (4.10-5.20)
[2023-02-14 11:03] VITALS: BMI 41.2
[2023-02-14 11:06] LABS: Blood Urea Nitrogen 12.2 mg/dL (9.0-27.0); Carbon Dioxide 23.2 mmol/L (21.6-31.8); Chloride 103 mmol/L (96-109); Magnesium 2.1 mg/dL (1.5-2.4); Phosphorus 3.1 mg/dL (2.4-5.1); Potassium 4.8 mmol/L (3.5-5.5); Sodium 137 mmol/L (135-145)
--- NOTE | 2023-02-14 12:17 | P.PN ---
Subjective Progress Note Date: 02/14/23 CHIEF COMPLAINT: Morbid obesity HISTORY OF PRESENT ILLNESS: Patient postop day #1 status post laparoscopic sleeve gastrectomy. She did complain of pain. Reports it's tolerable. The nausea has resolved. She has been up and ambulating. No flatus. Denies any nausea or vomiting currently. Denies any difficulty urinating. Afebrile. WBC 12.5 Hgb 11.8 platelets 431. Sodium is 137 potassium is 4.8 creatinine 0.7 magnesium 2.1 Upper GI results pending PHYSICAL EXAM: VITAL SIGNS: Reviewed. GENERAL: Well-developed in no acute distress. ABDOMEN: Soft. Nondistended. abdominal binder in place NEUROLOGIC: Alert and oriented. Cranial nerves II through XII grossly intact. ASSESSMENT: 1. Morbid obesity 2. GERD 3. Hypercholesterolemia 4. Leukocytosis reactive PLAN: -Add IV Toradol scheduled to help with pain control -Awaiting upper GI results before starting bariatric clear liquid diet -Continue IV fluids -Continue pain management -Continue antiemetics -Encourage patient to ambulate -Encourage patient to use incentive spirometer -And DVT prophylaxis Lovenox and GI prophylaxis protonix Physician House Designer note has been reviewed by physician. Signing provider agrees with the documented findings, assessment, and plan of care. I have personally seen and examined the patient, reviewed the LICENSING COORDINATOR /PAs history, exam and MDM and agree with the assessment and plan as written. Based on total visit time, I have performed more than 50% of the visit. As above: Patient feels fairly well today. Pain 2 out of 10. Mild dysphagia symptoms with liquids. Upper GI shows no leak. Intraoperative findings discussed with patient and her in detail. Will plan slow progression through liquid diet phase. Recheck labs tomorrow. Objective - Vital Signs Vital signs: Vital Signs Temp 98.2 F 02/14/23 06:53 Pulse 62 02/14/23 11:31 Resp 17 02/14/23 06:53 BP 149/85 02/14/23 06:53 Pulse Ox 98 02/14/23 11:16 FiO2 Intake & Output 02/13/23 02/14/23 02/14/23 18:59 06:59 18:59 Intake Total 1225 Output Total 15 Balance 1210 Weight 119.5 kg 119.5 kg 119.5 kg Intake: IV 1225 Output: Estimated Blood Loss 15 Other: # Voids 3 - Labs CBC & Chem 7: 02/14/23 05:53 02/14/23 05:53 Labs: Abnormal Lab Results - Last 24 Hours (Table) 02/13/23 02/14/23 Range/Units 19:11 05:53 WBC 12.50 H (4.50-10.00) X 10*3/uL Hgb 11.8 L (12.0-15.0) g/dL Hct 37.0 L (37.2-46.3) % MCH 26.3 L (27.0-32.0) pg MCHC 31.9 L (32.0-37.0) g/dL RDW 15.0 H (11.5-14.5) % Neutrophils # 9.97 H (1.80-7.70) X 10*3/uL Eosinophils # 0 L (0.04-0.35) X 10*3/uL POC Glucose (mg/dL) 134 H (70-110) mg/dL
--- NOTE | 2023-02-14 12:50 | P.CONS ---
History of Present Illness - Reason for Consult Consult date: 02/14/23 - Chief Complaint S/P Post surgery - History of Present Illness * 52-year-old patient with past medical history significant for gastric physical reflux disease, hyperlipidemia, thyroid disorder who has been admitted for elective gastric sleeve gastrectomy surgery. * Medicine team was consulted for postoperative management * Patient to chart review does have history of dyslipidemia and hypothyroidism * Postoperative blood work ordered include CBC and basic metabolic panel * Home medications to be reviewed and reconciled * Medicine team will continue to follow along, diet advanced as per general surgery recommendations REVIEW OF SYSTEMS: CONSTITUTIONAL: No fever, no malaise, no fatigue. HEENT: No recent visual problems or hearing problems. Denied any sore throat. CARDIOVASCULAR: No chest pain, orthopnea, PND, no palpitations, no syncope. PULMONARY: No shortness of breath, no cough, no hemoptysis. GASTROINTESTINAL: No diarrhea, no nausea, no vomiting, no abdominal pain. NEUROLOGICAL: No headaches, no weakness, no numbness. HEMATOLOGICAL: Denies any bleeding or petechiae. GENITOURINARY: Denies any burning micturition, frequency, or urgency. MUSCULOSKELETAL/RHEUMATOLOGICAL: Denies any joint pain, swelling, or any muscle pain. ENDOCRINE: Denies any polyuria or polydipsia. PHYSICAL EXAMINATION: GENERAL: The patient is alert and oriented x3, not in any acute distress. Well developed, well nourished. HEENT: Pupils are round and equally reacting to light. EOMI. CARDIOVASCULAR: S1 and S2 present. No murmurs, rubs, or gallops. PULMONARY: Chest is clear to auscultation, no wheezing or crackles. ABDOMEN: Soft, nontender, nondistended, surgical incision no drainage noted no discharge intact MUSCULOSKELETAL: No joint swelling or deformity. EXTREMITIES: No cyanosis, clubbing, or pedal edema. NEUROLOGICAL: Gross neurological examination did not reveal any focal deficits. SKIN: No rashes. Past Medical History Past Medical History: GERD/Reflux, Hyperlipidemia, Osteoarthritis (OA), Thyroid Disorder Additional Past Medical History / Comment(s): HX OF GESTATIONAL DIABETES, left middle toe is bruised from dropping something on it History of Any Multi-Drug Resistant Organisms: None Reported, ESBL Year Discovered:: 08/31/20 MDRO Source:: ESBL URINE Past Surgical History: Breast Surgery Additional Past Surgical History / Comment(s): LEFT BREAST BX., EGD Past Anesthesia/Blood Transfusion Reactions: No Reported Reaction Additional Past Anesthesia/Blood Transfusion Reaction / Comm: HAS NEVER RECEIVED ANESTHESIA Past Psychological History: No Psychological Hx Reported Smoking Status: Never smoker Past Alcohol Use History: Occasional Past Drug Use History: None Reported - Past Family History Sister(s) Family Medical History: Deep Vein Thrombosis (DVT) Medications and Allergies Home Medications Medication Instructions Recorded Confirmed Type Levothyroxine Sodium [Synthroid] 25 mcg PO DAILY 09/24/13 02/13/23 History Sertraline [Zoloft] 200 mg PO DAILY 08/18/22 02/13/23 History Rosuvastatin [Crestor] 5 mg PO DAILY 10/03/22 02/13/23 History buPROPion [Wellbutrin] 150 mg PO DAILY 10/03/22 02/13/23 History Allergies Allergy/AdvReac Type Severity Reaction Status Date / Time No Known Allergies Allergy Verified 02/13/23 13:10 Physical Exam Vitals: Vital Signs Temp Pulse Resp BP Pulse Ox 02/14/23 06:53 98.2 F 91 17 149/85 94 L 02/14/23 00:56 98.6 F 74 16 167/84 96 02/13/23 21:07 69 169/90 94 L 02/13/23 20:36 74 135/84 95 02/13/23 20:06 55 L 149/84 98 02/13/23 19:51 56 L 141/87 95 02/13/23 19:21 59 L 150/78 98 02/13/23 19:06 97.5 F L 62 150/85 95 02/13/23 18:17 71 16 150/79 93 L 02/13/23 18:02 70 16 156/71 94 L 02/13/23 17:47 71 16 158/72 93 L 02/13/23 17:02 68 18 162/59 95 02/13/23 16:47 97.8 F 74 18 138/68 96 02/13/23 13:11 97.7 F 86 16 159/83 99 Intake and Output 02/13/23 02/14/23 02/14/23 22:59 06:59 14:59 Intake Total 325 Output Total 15 Balance 310 Intake: IV 325 Output: Estimated Blood Loss 15 Other: # Voids 1 3 Weight 119.5 kg Results CBC & Chem 7: 02/14/23 05:53 02/14/23 05:53 Labs: Abnormal Lab Results - Last 24 Hours (Table) 02/13/23 Range/Units 19:11 POC Glucose (mg/dL) 134 H (70-110) mg/dL Assessment and Plan Assessment: Assessment and plan * Status post gastric sleeve surgery POD 1 * Hypothyroid * Dyslipidemia * History of depression * Patient seen postoperative day one status post surgery, postoperative management per surgical team, diet advanced per surgical team * Patient takes Synthyroid and Crestor at home, home medications to be initiated once patient starts taking oral intake * CBC and basic metabolic panel reviewed * SCDs for DVT prophylaxis Time with Patient: Greater than 30
--- NOTE | 2023-02-14 13:37 | FL ---
EXAMINATION TYPE: FL UGI DATE OF EXAM: 02/14/2023 COMPARISON: NONE HISTORY: 52-year-old female postop bariatric surgery, sleeve gastrectomy TECHNIQUE: A single contrast UGI study is performed. 2 ounces of Isovue-370 contrast material is ad ministered. A total of 1 minute 24 seconds of fluoroscopic time was utilized during procedure and 25 images obtained. Total dose area product (DAP) in uGy*m?, mGy*cm? (or similar): 600.3. FINDINGS: The patient swallowed oral contrast without difficulty or delay. However, there is delay in passage o f contrast from the esophagus into the stomach with episodes of intraesophageal reflux. Eventual pass age into the stomach with postsurgical change of sleeve gastrectomy. Contrast extends to the distal s tomach and eventually into the duodenum. There is no extravasation of contrast to suggest leak. No po st surgical free air is seen. IMPRESSION: Postsurgical changes related to sleeve gastrectomy. Mild relative obstruction/delay in pa ssage may be due to postoperative edema. Clinically correlate. No evidence for leak or free air.
[2023-02-15] MEDS: 0.9% NACL WITH KCL 20 MEQ/L 1,000 ML IV SCH ×3 (03:05→13:43)
[2023-02-15] MEDS: KETOROLAC 15 MG/ML 1 ML VIAL IVP SCH ×4 (05:50→23:40)
[2023-02-15] MEDS: ACETAMINOPHEN IV (For NPO) 1,000 MG in EMPTY BAG 1 BAG IVPB SCH ×4 (05:50→23:39)
[2023-02-15] MEDS: LEVOTHYROXINE 25 MCG TAB PO SCH (05:51)
[2023-02-15] MEDS: ENOXAPARIN 40 MG/0.4 ML SYRINGE SQ SCH ×2 (05:51→18:19)
[2023-02-15] MEDS ORDERED: bisacodyL 5 MG TABLET.DR PO PRN (08:00)
[2023-02-15] MEDS: ALBUTEROL NEBULIZED 2.5 MG/3 ML INHALATION SCH ×4 (08:03→20:54)
[2023-02-15] MEDS: ATORVASTATIN 10 MG TAB PO SCH (09:25)
[2023-02-15] MEDS: SERTRALINE 100 MG TAB PO SCH (09:25)
[2023-02-15] MEDS: PANTOPRAZOLE 40 MG/10 ML VIAL IV SCH (09:25)
[2023-02-15] MEDS: buPROPion XL 150 MG TAB.ER.24H PO SCH (09:26)
--- NOTE | 2023-02-15 10:10 | P.PN ---
Subjective Progress Note Date: 02/15/23 CHIEF COMPLAINT: Morbid obesity HISTORY OF PRESENT ILLNESS: Patient postop day #2 status post laparoscopic sleeve gastrectomy. Patient reports her pain is controlled. She denies any nausea or vomiting. She does complain of heartburn. She is going slow with drinking the liquids. Denies any flatus. She has been up and ambulating. Afebrile. Labs pending. Upper GI mild delay in passage. No evidence of leak or free air. PHYSICAL EXAM: VITAL SIGNS: Reviewed. GENERAL: Well-developed in no acute distress. ABDOMEN: Soft. Nondistended. abdominal binder in place NEUROLOGIC: Alert and oriented. Cranial nerves II through XII grossly intact. ASSESSMENT: 1. Morbid obesity 2. GERD 3. Hypercholesterolemia 4. Leukocytosis reactive PLAN: -Continue bariatric clear liquids -Encourage patient to ambulate -Continue IV fluids -Continue pain management -Continue antiemetics -Encourage patient to ambulate -Encourage patient to use incentive spirometer -And DVT prophylaxis Lovenox and GI prophylaxis protonix Physician Racing Board Marker note has been reviewed by physician. Signing provider agrees with the documented findings, assessment, and plan of care. I have personally seen and examined the patient, reviewed the ELECTRODYNAMICIST /PAs history, exam and MDM and agree with the assessment and plan as written. Based on total visit time, I have performed more than 50% of the visit. As above: Patient was doing well this morning. No pain. She had a few ounces of liquids. She then took a oral pill that felt like it got stuck. She is now having some mild discomfort and dysphagia. Continue sips of clears for now. Continue IV fluids. Will follow. Objective - Vital Signs Vital signs: Vital Signs Temp 98.6 F 02/15/23 08:00 Pulse 68 02/15/23 08:13 Resp 18 02/15/23 08:00 BP 131/84 02/15/23 08:00 Pulse Ox 98 02/15/23 08:03 FiO2 Intake & Output 02/14/23 02/15/23 02/15/23 18:59 06:59 18:59 Weight 119.5 kg Other: # Voids 3 2 - Labs CBC & Chem 7: 02/15/23 07:38 02/15/23 07:38 Labs: Abnormal Lab Results - Last 24 Hours (Table) 02/14/23 Range/Units 05:53 WBC 12.50 H (4.50-10.00) X 10*3/uL Hgb 11.8 L (12.0-15.0) g/dL Hct 37.0 L (37.2-46.3) % MCH 26.3 L (27.0-32.0) pg MCHC 31.9 L (32.0-37.0) g/dL RDW 15.0 H (11.5-14.5) % Neutrophils # 9.97 H (1.80-7.70) X 10*3/uL Eosinophils # 0 L (0.04-0.35) X 10*3/uL
[2023-02-15 10:52] LABS: HCT 33.7 % (37.2-46.3); HGB 10.6 g/dL (12.0-15.0); MCHC 31.5 g/dL (32.0-37.0); MCV 82.6 FL (80.0-97.0); Mean Platelet Volume 10.3 FL (9.5-12.2); NRBC Per 100 WBC 0 X 10*3/uL (0.00-0.01); Platelet Count 368 X 10*3/uL (140-440); RBC 4.08 X 10*6/uL (4.10-5.20); RDW 15.4 % (11.5-14.5); WBC 7.82 X 10*3/uL (4.50-10.00)
[2023-02-15 11:00] LABS: BUN/Creat Ratio 13.14 Ratio (12.00-20.00); Blood Urea Nitrogen 9.2 mg/dL (9.0-27.0); Calcium 8.4 mg/dL (8.7-10.3); Carbon Dioxide 19.8 mmol/L (21.6-31.8); Chloride 107 mmol/L (96-109); Glucose 88 mg/dL (70-110); Potassium 4.5 mmol/L (3.5-5.5); Sodium 137 mmol/L (135-145)
--- NOTE | 2023-02-15 12:26 | P.PN ---
Subjective Progress Note Date: 02/15/23 * 52-year-old patient with past medical history significant for gastric physical reflux disease, hyperlipidemia, thyroid disorder who has been admitted for elective gastric sleeve gastrectomy surgery. * Medicine team was consulted for postoperative management * Patient to chart review does have history of dyslipidemia and hypothyroidism * Postoperative blood work ordered include CBC and basic metabolic panel * Home medications to be reviewed and reconciled * Medicine team will continue to follow along, diet advanced as per general surgery recommendations * 02/15/2023: Patient seen and evaluated bedside, patient does complain of postprandial discomfort, continue patient on bariatric clear liquids, continue antiemetic, home medications reviewed. Leukocytosis resolved. Surgery team following CBC, basic metabolic panel reviewed REVIEW OF SYSTEMS: CONSTITUTIONAL: No fever, no malaise, no fatigue. HEENT: No recent visual problems or hearing problems. Denied any sore throat. CARDIOVASCULAR: No chest pain, orthopnea, PND, no palpitations, no syncope. PULMONARY: No shortness of breath, no cough, no hemoptysis. GASTROINTESTINAL: No diarrhea, no nausea, no vomiting, no abdominal pain. NEUROLOGICAL: No headaches, no weakness, no numbness. HEMATOLOGICAL: Denies any bleeding or petechiae. GENITOURINARY: Denies any burning micturition, frequency, or urgency. MUSCULOSKELETAL/RHEUMATOLOGICAL: Denies any joint pain, swelling, or any muscle pain. ENDOCRINE: Denies any polyuria or polydipsia. PHYSICAL EXAMINATION: GENERAL: The patient is alert and oriented x3, not in any acute distress. Well developed, well nourished. HEENT: Pupils are round and equally reacting to light. EOMI. CARDIOVASCULAR: S1 and S2 present. No murmurs, rubs, or gallops. PULMONARY: Chest is clear to auscultation, no wheezing or crackles. ABDOMEN: Soft, nontender, nondistended, surgical incision no drainage noted no discharge intact MUSCULOSKELETAL: No joint swelling or deformity. EXTREMITIES: No cyanosis, clubbing, or pedal edema. NEUROLOGICAL: Gross neurological examination did not reveal any focal deficits. SKIN: No rashes. Objective - Vital Signs Vital signs: Vital Signs Temp 98.6 F 02/15/23 08:00 Pulse 68 02/15/23 08:13 Resp 18 02/15/23 08:00 BP 131/84 02/15/23 08:00 Pulse Ox 98 02/15/23 08:03 FiO2 Intake & Output 02/14/23 02/15/23 02/15/23 18:59 06:59 18:59 Weight 119.5 kg Other: # Voids 3 2 - Labs CBC & Chem 7: 02/15/23 07:38 02/15/23 07:38 Labs: Abnormal Lab Results - Last 24 Hours (Table) 02/15/23 02/15/23 Range/Units 07:38 07:38 RBC 4.08 L (4.10-5.20) X 10*6/uL Hgb 10.6 L (12.0-15.0) g/dL Hct 33.7 L (37.2-46.3) % MCH 26.0 L (27.0-32.0) pg MCHC 31.5 L (32.0-37.0) g/dL RDW 15.4 H (11.5-14.5) % Carbon Dioxide 19.8 L (21.6-31.8) mmol/L Calcium 8.4 L (8.7-10.3) mg/dL Assessment and Plan Assessment: Assessment and plan * Status post gastric sleeve surgery POD 2 * Hypothyroid * Dyslipidemia * History of depression * Patient seen postoperative day one status post surgery, postoperative m anagement per surgical team, diet advanced per surgical team * Patient takes Synthyroid and Crestor at home, home medications to be initiated once patient starts taking oral intake * CBC and basic metabolic panel reviewed, leukocytosis resolved * Continue fluid resuscitation * SCDs for DVT prophylaxis, Lovenox for DVT prophylaxis * Continue IV Protonix for GI prophylaxis Time with Patient: Less than 30
[2023-02-15] MEDS: HYOSCYAMINE ORAL DROPS 1.875 MG/15 ML BOTTLE PO PRN (14:01)
[2023-02-16] MEDS: LEVOTHYROXINE 25 MCG TAB PO SCH (06:00)
[2023-02-16] MEDS: ENOXAPARIN 40 MG/0.4 ML SYRINGE SQ SCH (06:00)
[2023-02-16] MEDS: KETOROLAC 15 MG/ML 1 ML VIAL IVP SCH ×2 (06:11→12:27)
[2023-02-16] MEDS: ACETAMINOPHEN IV (For NPO) 1,000 MG in EMPTY BAG 1 BAG IVPB SCH ×2 (06:12→12:26)
[2023-02-16 07:48] VITALS: RESP 18; TEMP 98.3
[2023-02-16] MEDS: buPROPion XL 150 MG TAB.ER.24H PO SCH (08:44)
[2023-02-16] MEDS: HYOSCYAMINE ORAL DROPS 1.875 MG/15 ML BOTTLE PO PRN (08:44)
[2023-02-16] MEDS: ATORVASTATIN 10 MG TAB PO SCH (08:44)
[2023-02-16] MEDS: PANTOPRAZOLE 40 MG/10 ML VIAL IV SCH (08:45)
[2023-02-16] MEDS: SERTRALINE 100 MG TAB PO SCH (08:45)
[2023-02-16] MEDS: 0.9% NACL WITH KCL 20 MEQ/L 1,000 ML IV SCH (09:01)
[2023-02-16] MEDS: ALBUTEROL NEBULIZED 2.5 MG/3 ML INHALATION SCH ×3 (09:05→16:28)
[2023-02-16 11:11] LABS: HCT 33.8 % (37.2-46.3); HGB 10.5 g/dL (12.0-15.0); MCH 25.7 pg (27.0-32.0); MCHC 31.1 g/dL (32.0-37.0); MCV 82.6 FL (80.0-97.0); Mean Platelet Volume 10.2 FL (9.5-12.2); NRBC Per 100 WBC 0 X 10*3/uL (0.00-0.01); Platelet Count 333 X 10*3/uL (140-440); RBC 4.09 X 10*6/uL (4.10-5.20); RDW 15.4 % (11.5-14.5); WBC 6.66 X 10*3/uL (4.50-10.00)
--- NOTE | 2023-02-16 12:18 | P.PN ---
Subjective Progress Note Date: 02/16/23 * 52-year-old patient with past medical history significant for gastric physical reflux disease, hyperlipidemia, thyroid disorder who has been admitted for elective gastric sleeve gastrectomy surgery. * Medicine team was consulted for postoperative management * Patient to chart review does have history of dyslipidemia and hypothyroidism * Postoperative blood work ordered include CBC and basic metabolic panel * Home medications to be reviewed and reconciled * Medicine team will continue to follow along, diet advanced as per general surgery recommendations * 02/15/2023: Patient seen and evaluated bedside, patient does complain of postprandial discomfort, continue patient on bariatric clear liquids, continue antiemetic, home medications reviewed. Leukocytosis resolved. Surgery team following CBC, basic metabolic panel reviewed * 02/16/2023: Patient seen and evaluated bedside, patient denies of abdominal pain, CBC showed hemoglobin of 10.5, platelet count of 333, patient remains afebrile. Plan to discharge home once cleared by surgery REVIEW OF SYSTEMS: CONSTITUTIONAL: No fever, no malaise, no fatigue. HEENT: No recent visual problems or hearing problems. Denied any sore throat. CARDIOVASCULAR: No chest pain, orthopnea, PND, no palpitations, no syncope. PULMONARY: No shortness of breath, no cough, no hemoptysis. GASTROINTESTINAL: No diarrhea, no nausea, no vomiting, no abdominal pain. NEUROLOGICAL: No headaches, no weakness, no numbness. HEMATOLOGICAL: Denies any bleeding or petechiae. GENITOURINARY: Denies any burning micturition, frequency, or urgency. MUSCULOSKELETAL/RHEUMATOLOGICAL: Denies any joint pain, swelling, or any muscle pain. ENDOCRINE: Denies any polyuria or polydipsia. PHYSICAL EXAMINATION: GENERAL: The patient is alert and oriented x3, not in any acute distress. Well developed, well nourished. HEENT: Pupils are round and equally reacting to light. EOMI. CARDIOVASCULAR: S1 and S2 present. No murmurs, rubs, or gallops. PULMONARY: Chest is clear to auscultation, no wheezing or crackles. ABDOMEN: Soft, nontender, nondistended, surgical incision no drainage noted no discharge intact MUSCULOSKELETAL: No joint swelling or deformity. EXTREMITIES: No cyanosis, clubbing, or pedal edema. NEUROLOGICAL: Gross neurological examination did not reveal any focal deficits. SKIN: No rashes. Objective - Vital Signs Vital signs: Vital Signs Temp 98.3 F 12/07/23 06:48 Pulse 71 02/16/23 06:48 Resp 18 02/16/23 06:48 BP 134/80 02/16/23 06:48 Pulse Ox 93 L 02/16/23 06:48 FiO2 Intake & Output 02/15/23 02/16/23 02/16/23 18:59 06:59 18:59 Intake Total 1300 Balance 1300 Intake: Intake, IV Titration 1300 Amount 0.9% NaCl with KCl 20 Meq 1200 /l 1,000 ml @ 100 mls/hr IV .Q10H [facility] Rx#: [id number] ACETAMINOPHEN IV (For NPO 100 ) 1,000 mg In Empty Bag 1 bag @ 400 mls/hr IVPB Q6HR [facility] Rx#:[id number] Other: # Voids 2 - Labs CBC & Chem 7: 02/16/23 06:16 02/15/23 07:38 Labs: Abnormal Lab Results - Last 24 Hours (Table) 02/16/23 Range/Units 06:16 RBC 4.09 L (4.10-5.20) X 10*6/uL Hgb 10.5 L (12.0-15.0) g/dL Hct 33.8 L (37.2-46.3) % MCH 25.7 L (27.0-32.0) pg MCHC 31.1 L (32.0-37.0) g/dL RDW 15.4 H (11.5-14.5) % Assessment and Plan Assessment: Assessment and plan * Status post gastric sleeve surgery POD 3 * Hypothyroid * Dyslipidemia * History of depression * Patient seen postoperative day 3 status post surgery, postoperative management per surgical team, diet advanced per surgical team * Patient takes Synthyroid and Crestor at home, home medications to be initiated once patient starts taking oral intake * CBC and basic metabolic panel reviewed, leukocytosis resolved * Continue fluid resuscitation * SCDs for DVT prophylaxis, Lovenox for DVT prophylaxis * Continue IV Protonix for GI prophylaxis
[2023-02-16 14:14] VITALS: BP 131/74; PULSE 58
--- NOTE | 2023-02-16 14:21 | P.DS ---
Providers Date of admission: 02/16/23 09:02 Expected date of discharge: 02/16/23 Attending physician: Farzad Aguila Consults: 02/13/23 16:50 Consult Physician Routine Consulting Provider: Madalyn Negron Consult Reason/Comments: Medical management Do you want consulting provider notified?: Yes Primary care physician: Dulce Maria Aguila Hospital Course: Discharge diagnosis 1. Morbid obesity 2. GERD 3. Hypercholesterolemia 4. Leukocytosis reactive. Resolved Hospital course This is a 52-year-old female with history of morbid obesity. She is status post laparoscopic sleeve gastrectomy. Patient upper GI had shown mild delay in passage. No evidence of leak or free air. She is tolerating diet. Her pain is controlled. She has been up and ambulating. She has had a bowel movement. Denies any difficulty urinating. She's afebrile. She is stable for discharge. Please refer to chart for any further details. Physician Aircraft Powertrain Repairer note has been reviewed by physician. Signing provider agrees with the documented findings, assessment, and plan of care. Patient Condition at Discharge: Stable Plan - Discharge Summary Discharge Rx Participant: Yes New Discharge Prescriptions: New Simethicone 40 mg/0.6 ml Drops [Mylicon Drops] 40 mg PO PCHS PRN #30 ml PRN Reason: Gas Ondansetron Odt [Zofran Odt] 4 mg PO Q8HR PRN #9 tab PRN Reason: Nausea bisacodyL [Dulcolax] 5 mg PO DAILY PRN #10 tab PRN Reason: Constipation Omeprazole [PriLOSEC] 40 mg PO DAILY #30 cap Acetaminophen Tab [Tylenol] 1,000 mg PO Q6HR PRN #30 tablet PRN Reason: Pain Continue Levothyroxine Sodium [Synthroid] 25 mcg PO DAILY Sertraline [Zoloft] 200 mg PO DAILY buPROPion [Wellbutrin] 150 mg PO DAILY Rosuvastatin [Crestor] 5 mg PO DAILY Discharge Medication List Levothyroxine Sodium [Synthroid] 25 mcg PO DAILY 09/24/13 [History] Sertraline [Zoloft] 200 mg PO DAILY 08/18/22 [History] Rosuvastatin [Crestor] 5 mg PO DAILY 10/03/22 [History] buPROPion [Wellbutrin] 150 mg PO DAILY 10/03/22 [History] Omeprazole [PriLOSEC] 40 mg PO DAILY #30 cap 02/15/23 [Rx] Ondansetron Odt [Zofran Odt] 4 mg PO Q8HR PRN #9 tab 02/15/23 [Rx] Simethicone 40 mg/0.6 ml Drops [Mylicon Drops] 40 mg PO PCHS PRN #30 ml 02/15/23 [Rx] bisacodyL [Dulcolax] 5 mg PO DAILY PRN #10 tab 02/15/23 [Rx] Acetaminophen Tab [Tylenol] 1,000 mg PO Q6HR PRN #30 tablet 02/16/23 [Rx] [facility] [facility] [place] [place] [facility] [place] Activity/Diet/Wound Care/Special Instructions: No lifting over 10 pounds You may shower. No soaking or tub baths for 2 weeks Very light activity until you are reevaluated at your follow up appointment with your surgeon No straws or carbonated beverages Open, cut or crush all pills to smaller than the size of a tic tac Discharge Disposition: HOME SELF-CARE
== END 2023-02-16 16:25 | disposition home or self-care (01) ==
LOC: OR 12:40 → 4SSUR 16:38 → OR 02-16 09:02
PROVIDERS: ADMIT Surgery; ATTEND Surgery
DX: E66.01 Morbid (severe) obesity due to excess calories (principal); K21.9 Gastro-esophageal reflux disease without esophagitis; E78.00 Pure hypercholesterolemia, unspecified; K29.50 Unspecified chronic gastritis without bleeding; D72.829 Elevated white blood cell count, unspecified; E03.9 Hypothyroidism, unspecified; F32.A Depression, unspecified; Z68.41 Body mass index [BMI] 40.0-44.9, adult; Z79.890 Hormone replacement therapy; Z79.899 Other long term (current) drug therapy
CPT/HCPCS: 43775; S2900; 74240; 80051; 81025; 82310; 82565; 83735; 84100; 84520; 85025; 85027; 88307; 94640; 94760; 96365; 96366; 96367; 96372; 96375; 96376

== ENCOUNTER → 2023-02-17 | Outpatient (CLI) | payer BC ==
[2023-02-17 10:36] VITALS: BP 130/83; PULSE 70; RESP 12; TEMP 98
== END ==
LOC: BARWHC3 09:22
PROVIDERS: ATTEND Surgery
DX: E66.01 Morbid (severe) obesity due to excess calories (principal)
CPT/HCPCS: 99211

== ENCOUNTER → 2023-02-21 | Outpatient (CLI) | payer BC ==
[2023-02-21 14:01] VITALS: BP 111/76; PULSE 62; RESP 16; TEMP 97.6; BMI 40.1
--- NOTE | 2023-02-21 15:14 | P.BASOAP ---
Subjective Progress Note Date: 02/21/23 Principal diagnosis: Morbid obesity Patient returns after sleeve gastrectomy last Monday. At the time of surgery we had an issue with the stapler firing on one occasion and had to re-staple closer to the gastric sizer. Patient doing well with liquid intake. She is only on water and very thin liquids. No pain. No significant GERD symptoms. Heart rate is normal. 7 pound weight loss since Monday. Greater than 60 ounces of liquids daily. Objective - Vital Signs Vital signs: Vital Signs Temp 97.6 F 02/21/23 13:43 Pulse 62 02/21/23 13:43 Resp 16 02/21/23 13:43 BP 111/76 02/21/23 13:43 Pulse Ox FiO2 Intake & Output 02/20/23 02/21/23 02/21/23 18:59 06:59 18:59 Weight 116.12 kg - Exam Abdomen: Soft, nondistended, incisions clean and dry Assessment/Plan (1) Morbid obesity with BMI of 40.0-44.9, adult Narrative/Plan: Overall patient doing fairly well. Continue gradual advancement of diet. Begin when full liquids at this time. If tolerating well may start. Next week. Follow-up on 02/28 and 03/10. Plan: Date: 02/21/23 Initial Weight: 120.656 kg Initial BMI: 41.6 Current Weight: 116.12 kg Current BMI: 40.1 Type of Surgery: Vertical Sleeve Gastrectomy Total Volume in Band: Previous Volume: Volume Removed: Volume Added: Band Size:
== END ==
LOC: BARWHC3 13:36
PROVIDERS: ATTEND Surgery
DX: E66.01 Morbid (severe) obesity due to excess calories (principal); Z71.3 Dietary counseling and surveillance; Z68.41 Body mass index [BMI] 40.0-44.9, adult
CPT/HCPCS: 97802; 99211

== ENCOUNTER → 2023-02-28 | Outpatient (CLI) | payer BC ==
[2023-02-28 14:03] VITALS: BP 137/88; TEMP 98.2; BMI 39.7
--- NOTE | 2023-02-28 16:59 | P.BASOAP ---
Subjective Progress Note Date: 02/28/23 Principal diagnosis: Morbid obesity Patient returns for recheck. She has lost 3 pounds since last week. Doing well. Heart rate is 73. No pain. She had an episode of dysphagia with protein powder mixed with putting. She has been tolerating other thicker liquids however. No nausea. No vomiting. Objective - Vital Signs Vital signs: Vital Signs Temp 98.2 F 02/28/23 13:40 Pulse Resp BP 137/88 02/28/23 13:40 Pulse Ox FiO2 Intake & Output 02/27/23 02/28/23 02/28/23 18:59 06:59 18:59 Weight 115.212 kg - Exam Abdomen: Soft, nondistended, incisions clean and dry Assessment/Plan (1) Morbid obesity with BMI of 40.0-44.9, adult Narrative/Plan: Patient continues to do well. Continue protein and liquid intake monitoring. Slowly advance to a thinned out pured foods. Plan recheck 2 weeks. Plan: Date: 02/28/23 Initial Weight: 120.656 kg Initial BMI: 41.6 Current Weight: 115.212 kg Current BMI: 39.7 Type of Surgery: Total Volume in Band: Previous Volume: Volume Removed: Volume Added: Band Size:
== END ==
LOC: BARWHC3 12:45
PROVIDERS: ATTEND Surgery
DX: E66.01 Morbid (severe) obesity due to excess calories (principal); Z71.3 Dietary counseling and surveillance; Z68.41 Body mass index [BMI] 40.0-44.9, adult
CPT/HCPCS: 97803; 99211

== ENCOUNTER → 2023-03-10 | Outpatient (CLI) | payer BC ==
[2023-03-10 10:19] VITALS: BP 106/70; PULSE 72; TEMP 98.2; BMI 39.3
--- NOTE | 2023-03-10 10:31 | P.BASOAP ---
Subjective Progress Note Date: 03/10/23 Principal diagnosis: Morbid obesity Patient returns for recheck. She has lost 3 pounds in the last 10 days. Denies abdominal pain. Minimal reflux symptoms. No significant dysphagia. Remains on a very thin. Diet at this time. Seems to be tolerating that fairly well. Heart rate is normal. No fevers. Objective - Vital Signs Vital signs: Vital Signs Temp 98.2 F 03/10/23 10:03 Pulse 72 03/10/23 10:03 Resp BP 106/70 03/10/23 10:03 Pulse Ox FiO2 Intake & Output 03/09/23 03/10/23 03/10/23 18:59 06:59 18:59 Weight 113.852 kg - Exam Abdomen: Soft, nontender, nondistended, incisions clean and dry Assessment/Plan (1) Morbid obesity with BMI of 40.0-44.9, adult Narrative/Plan: Patient doing well at this time. Continue gradual advancement of diet. Resume normal activities. May return to work on 03/15. Follow-up 1 month. We'll check one month labs. Plan: Date: 03/10/23 Initial Weight: 120.656 kg Initial BMI: 41.6 Current Weight: 113.852 kg Current BMI: 39.3 Type of Surgery: Total Volume in Band: Previous Volume: Volume Removed: Volume Added: Band Size:
== END ==
LOC: BARWHC3 09:52
PROVIDERS: ATTEND Surgery
DX: K21.9 Gastro-esophageal reflux disease without esophagitis (principal); E66.01 Morbid (severe) obesity due to excess calories; Z71.3 Dietary counseling and surveillance; Z68.39 Body mass index [BMI] 39.0-39.9, adult
CPT/HCPCS: 99211

== ENCOUNTER → 2023-03-15 | Outpatient (CLI) | payer BC ==
[2023-03-15 19:05] LABS: HCT 39.8 % (37.2-46.3); HGB 12.2 g/dL (12.0-15.0); MCH 25.3 pg (27.0-32.0); MCHC 30.7 g/dL (32.0-37.0); MCV 82.6 FL (80.0-97.0); Mean Platelet Volume 11.5 FL (9.5-12.2); NRBC Per 100 WBC 0 X 10*3/uL (0.00-0.01); Platelet Count 344 X 10*3/uL (140-440); RBC 4.82 X 10*6/uL (4.10-5.20); RDW 15.6 % (11.5-14.5); WBC 5.76 X 10*3/uL (4.50-10.00)
[2023-03-15 19:40] LABS: Blood Urea Nitrogen 13.3 mg/dL (9.0-27.0); Glucose 89 mg/dL (70-110)
[2023-03-15 19:41] LABS: ALT 24 U/L (8-44); AST 17 U/L (13-35); Albumin 4.1 g/dL (3.8-4.9); Albumin/Globulin Ratio 1.46 Ratio (1.60-3.17); Alkaline Phosphatase 74 U/L (41-126); Calcium 9.6 mg/dL (8.7-10.3); Carbon Dioxide 25.5 mmol/L (21.6-31.8); Chloride 103 mmol/L (96-109); Globulin 2.8 g/dL (1.6-3.3); Potassium 4.1 mmol/L (3.5-5.5); Sodium 140 mmol/L (135-145); Total Bilirubin 0.4 mg/dL (0.3-1.2); Total Protein 6.9 g/dL (6.2-8.2)
[2023-03-15 20:10] LABS: % Iron Saturation 9.78 (12.00-45.00); Iron 35 UG/DL (50-170); Total Iron Binding Capacity 358 UG/DL (228-460)
== END | disposition home or self-care (01) ==
LOC: LABPAT 15:44
PROVIDERS: ATTEND Surgery
DX: E66.01 Morbid (severe) obesity due to excess calories (principal); K90.89 Other intestinal malabsorption; E55.9 Vitamin D deficiency, unspecified
CPT/HCPCS: 80053; 82306; 82607; 82746; 83540; 83550; 84425; 85027

== ENCOUNTER → 2023-04-04 | Outpatient (CLI) | payer BC ==
[2023-04-04 15:54] VITALS: BP 134/73; PULSE 58; RESP 16; TEMP 98.3; BMI 37.5
--- NOTE | 2023-04-04 16:16 | P.BASOAP ---
Subjective Progress Note Date: 04/04/23 Principal diagnosis: Morbid obesity Patient returns for recheck. Was last seen 3 to 4 weeks ago. She had her 1 month labs checked. Her iron was low at 35. Previously it was low preoperatively at 42. She just started taking her multivitamin around the time her labs were drawn. Denies rectal bleeding or melena. Patient says her heartburn improved after starting her omeprazole. She still has occasional mild burning discomfort after meals. Normal heart rate. 11 pound weight loss. No significant abdominal pain. Objective - Vital Signs Vital signs: Vital Signs Temp 98.3 F 04/04/23 15:33 Pulse 58 L 04/04/23 15:33 Resp 16 04/04/23 15:33 BP 134/73 04/04/23 15:33 Pulse Ox FiO2 Intake & Output 04/03/23 04/04/23 04/04/23 18:59 06:59 18:59 Weight 108.862 kg - Exam Abdomen: Soft, nondistended, nontender, incisions clean and dry Assessment/Plan (1) Morbid obesity with BMI of 40.0-44.9, adult Narrative/Plan: 52-year-old female doing fairly well at this time. Continue multivitamin. Follow-up 1 month. Will check 3-month labs around that time. Monitor low iron. May require iron supplementation but will hold off until labs are rechecked next visit. Plan: Date: 04/04/23 Initial Weight: 120.656 kg Initial BMI: 41.6 Current Weight: 108.862 kg Current BMI: 37.5 Type of Surgery: Vertical Sleeve Gastrectomy Total Volume in Band: Previous Volume: Volume Removed: Volume Added: Band Size:
== END ==
LOC: BARWHC3 15:01
PROVIDERS: ATTEND Surgery
DX: E66.01 Morbid (severe) obesity due to excess calories (principal); Z71.3 Dietary counseling and surveillance; Z68.37 Body mass index [BMI] 37.0-37.9, adult
CPT/HCPCS: 99211

== ENCOUNTER → 2023-05-09 | Outpatient (CLI) | payer BC ==
--- NOTE | 2023-05-09 15:35 | P.BASOAP ---
Subjective Progress Note Date: 05/09/23 Principal diagnosis: Morbid obesity Patient returns for reevaluation. Doing well since 1 month ago visit. She has lost 14 pounds. Still having some mild dysphagia. Says the more dense the food just lower it goes through. She is taking an adequate protein and liquids. Still having difficulty with more solid foods. She does tolerate chicken if chewed well and is moist. Taking antiacids every other day. No abdominal pain. Objective - Vital Signs Vital signs: Vital Signs Temp 98.3 F 05/09/23 15:24 Pulse 61 05/09/23 15:24 Resp 16 05/09/23 15:24 BP 135/80 05/09/23 15:24 Pulse Ox FiO2 Intake & Output 05/08/23 05/09/23 05/09/23 18:59 06:59 18:59 Weight 102.512 kg - Exam Abdomen: Soft, nontender, nondistended Assessment/Plan (1) Morbid obesity with BMI of 40.0-44.9, adult Narrative/Plan: Patient doing well postoperatively. Continue solid food diet. Continue monit oring liquid and protein intake. Continue every other day antiacid use. Will order 3-month lab work to be drawn sometime in the next 1 to 2 weeks. Follow-up 1 month. Plan: Date: 05/09/23 Initial Weight: 120.656 kg Initial BMI: 41.6 Current Weight: 102.512 kg Current BMI: 35.4 Type of Surgery: Vertical Sleeve Gastrectomy Total Volume in Band: Previous Volume: Volume Removed: Volume Added: Band Size:
[2023-05-09 15:40] VITALS: BP 135/80; PULSE 61; RESP 16; TEMP 98.3; BMI 35.4
== END ==
LOC: BARWHC3 14:29
PROVIDERS: ATTEND Surgery
DX: E66.01 Morbid (severe) obesity due to excess calories (principal); R13.10 Dysphagia, unspecified; Z71.3 Dietary counseling and surveillance; Z68.41 Body mass index [BMI] 40.0-44.9, adult
CPT/HCPCS: 97803; 99211

== ENCOUNTER → 2023-05-19 | Outpatient (CLI) | payer BC ==
[2023-05-19 18:16] LABS: HCT 40.6 % (37.2-46.3); HGB 12.6 g/dL (12.0-15.0); MCH 25.4 pg (27.0-32.0); MCV 81.7 FL (80.0-97.0); Mean Platelet Volume 11.5 FL (9.5-12.2); NRBC Per 100 WBC 0 X 10*3/uL (0.00-0.01); Platelet Count 338 X 10*3/uL (140-440); RBC 4.97 X 10*6/uL (4.10-5.20); RDW 16.2 % (11.5-14.5); WBC 5.11 X 10*3/uL (4.50-10.00)
[2023-05-19 18:58] LABS: BUN/Creat Ratio 29.43 Ratio (12.00-20.00); Blood Urea Nitrogen 20.6 mg/dL (9.0-27.0); Carbon Dioxide 24.8 mmol/L (21.6-31.8); Chloride 108 mmol/L (96-109); Glucose 103 mg/dL (70-110); Iron 52 UG/DL (50-170); Potassium 3.7 mmol/L (3.5-5.5); Sodium 144 mmol/L (135-145)
[2023-05-19 18:59] LABS: ALT 22 U/L (8-44); AST 22 U/L (13-35); Albumin 4.2 g/dL (3.8-4.9); Albumin/Globulin Ratio 1.62 Ratio (1.60-3.17); Alkaline Phosphatase 65 U/L (41-126); Calcium 9.8 mg/dL (8.7-10.3); Globulin 2.6 g/dL (1.6-3.3); Total Bilirubin 0.6 mg/dL (0.3-1.2); Total Protein 6.8 g/dL (6.2-8.2)
== END | disposition home or self-care (01) ==
LOC: LABWHC1 09:36
PROVIDERS: ATTEND Surgery
DX: E55.9 Vitamin D deficiency, unspecified (principal); E66.01 Morbid (severe) obesity due to excess calories; K90.89 Other intestinal malabsorption
CPT/HCPCS: 36415; 80053; 82306; 82607; 82746; 83540; 84425; 85027

== ENCOUNTER → 2023-06-06 | Outpatient (CLI) | payer BC ==
[2023-06-06 15:29] VITALS: BP 122/87; PULSE 66; RESP 16; TEMP 98.4; BMI 33.8
--- NOTE | 2023-06-06 17:03 | P.BASOAP ---
Subjective Progress Note Date: 06/06/23 Principal diagnosis: Morbid obesity Patient returns for recheck. Last seen 05/09. She had her labs drawn earlier this month which looked good. Sleeve in February. Doing much better eating. Still trouble with bread but tolerating ground meats quite well. Doing well with fish. 10 pound weight loss. Patient says she has been avoiding cheese because of constipation. Objective - Vital Signs Vital signs: Vital Signs Temp 98.4 F 06/06/23 15:26 Pulse 66 06/06/23 15:26 Resp 16 06/06/23 15:26 BP 122/87 06/06/23 15:26 Pulse Ox FiO2 Intake & Output 06/05/23 06/06/23 06/06/23 18:59 06:59 18:59 Weight 97.976 kg - Exam Abdomen: Soft, nontender, nondistended Assessment/Plan (1) Morbid obesity with BMI of 40.0-44.9, adult Narrative/Plan: 53-year-old female doing well after sleeve gastrectomy. Continue diet as tolerated. Activities as tolerated. Patient is now off of her antiacids. Continue observation off of antiacid therapy. Follow-up 6 weeks. Plan: Date: 06/06/23 Initial Weight: 120.656 kg Initial BMI: 41.6 Current Weight: 97.976 kg Current BMI: 33.8 Type of Surgery: Vertical Sleeve Gastrectomy Total Volume in Band: Previous Volume: Volume Removed: Volume Added: Band Size:
== END ==
LOC: BARWHC3 14:49
PROVIDERS: ATTEND Surgery
DX: E66.01 Morbid (severe) obesity due to excess calories (principal); K59.00 Constipation, unspecified; Z68.41 Body mass index [BMI] 40.0-44.9, adult; Z98.84 Bariatric surgery status; Z71.3 Dietary counseling and surveillance
CPT/HCPCS: 99211

== ENCOUNTER → 2023-07-25 | Outpatient (CLI) | payer BC ==
[2023-07-25 15:49] VITALS: BP 121/74; PULSE 59; TEMP 98; BMI 32.2
--- NOTE | 2023-07-25 16:25 | P.BASOAP ---
Subjective Progress Note Date: 07/25/23 Principal diagnosis: Morbid obesity Patient returns for recheck. Says she has not been taking her antiacids recently. Only mild burning symptoms at times. Still has some dysphagia to a variety of different foods. Patient would like to try resuming her antiacids but needs a new prescription. She states she will try taking it as needed. She has lost 10 pounds since her last visit. No nausea or vomiting. Objective - Vital Signs Vital signs: Vital Signs Temp 98 F 07/25/23 15:16 Pulse 59 L 07/25/23 15:16 Resp BP 121/74 07/25/23 15:16 Pulse Ox FiO2 Intake & Output 07/24/23 07/25/23 07/25/23 18:59 06:59 18:59 Weight 93.44 kg - Exam Abdomen: Soft, nontender, nondistended Assessment/Plan (1) Morbid obesity with BMI of 40.0-44.9, adult Narrative/Plan: Overall patient doing fairly well after prior sleeve gastrectomy. Will refill the patient's prescription for omeprazole. Follow-up 6 weeks. Check 6-month labs at that time. Plan: Date: 07/25/23 Initial Weight: 120.656 kg Initial BMI: 41.6 Current Weight: 93.44 kg Current BMI: 32.2 Type of Surgery: Total Volume in Band: Previous Volume: Volume Removed: Volume Added: Band Size:
== END ==
LOC: BARWHC3 15:15
PROVIDERS: ATTEND Surgery
DX: E66.01 Morbid (severe) obesity due to excess calories (principal); Z90.3 Acquired absence of stomach [part of]
CPT/HCPCS: 99211

== ENCOUNTER → 2023-09-05 | Outpatient (CLI) | payer BC ==
[2023-09-05 15:25] VITALS: BP 129/76; PULSE 62; TEMP 98.2; BMI 30.4
--- NOTE | 2023-09-05 15:45 | P.BASOAP ---
Subjective Progress Note Date: 09/05/23 Principal diagnosis: Morbid obesity Patient returns for reevaluation. Now doing antiacids twice weekly and seems to be tolerating that well. Excellent weight loss. No nausea or vomiting. Some constipation issues. Took stool softeners twice. Underwent Cologuard testing apparently 2 years ago. No rectal bleeding. No family history of colon cancer. Symptoms have improved after starting electrolyte replacement. Objective - Vital Signs Vital signs: Vital Signs Temp 98.2 F 09/05/23 15:16 Pulse 62 09/05/23 15:16 Resp BP 129/76 09/05/23 15:16 Pulse Ox FiO2 Intake & Output 09/04/23 09/05/23 09/05/23 18:59 06:59 18:59 Weight 87.997 kg - Exam Abdomen: Soft, nontender, nondistended Assessment/Plan (1) Morbid obesity with BMI of 40.0-44.9, adult Narrative/Plan: Patient doing well at this time. Continue dietary and exercise regimen. Continue twice weekly PPI. Recheck 2 months. Check 6-month labs today. Plan: Date: 09/05/23 Initial Weight: 120.656 kg Initial BMI: 41.6 Current Weight: 87.997 kg Current BMI: 30.4 Type of Surgery: Total Volume in Band: Previous Volume: Volume Removed: Volume Added: Band Size:
== END ==
LOC: BARWHC3 14:45
PROVIDERS: ATTEND Surgery
DX: E66.01 Morbid (severe) obesity due to excess calories (principal); Z71.3 Dietary counseling and surveillance; Z68.41 Body mass index [BMI] 40.0-44.9, adult
CPT/HCPCS: 97803; 99211

== ENCOUNTER → 2023-09-26 | Outpatient (CLI) | payer BC ==
[2023-09-26 15:57] LABS: HCT 42.1 % (37.2-46.3); HGB 13.2 g/dL (12.0-15.0); MCH 26.3 pg (27.0-32.0); MCHC 31.4 g/dL (32.0-37.0); Mean Platelet Volume 11.4 FL (9.5-12.2); NRBC Per 100 WBC 0 X 10*3/uL (0.00-0.01); Platelet Count 366 X 10*3/uL (140-440); RBC 5.01 X 10*6/uL (4.10-5.20); RDW 14.6 % (11.5-14.5); WBC 6.23 X 10*3/uL (4.50-10.00)
[2023-09-26 16:24] LABS: ALT 19 U/L (8-44); AST 20 U/L (13-35); Albumin 4.3 g/dL (3.8-4.9); Albumin/Globulin Ratio 1.65 Ratio (1.60-3.17); Alkaline Phosphatase 85 U/L (41-126); BUN/Creat Ratio 26.88 Ratio (12.00-20.00); Blood Urea Nitrogen 21.5 mg/dL (9.0-27.0); Carbon Dioxide 23.8 mmol/L (21.6-31.8); Chloride 106 mmol/L (96-109); Globulin 2.6 g/dL (1.6-3.3); Glucose 100 mg/dL (70-110); Iron 56 UG/DL (50-170); Potassium 4.4 mmol/L (3.5-5.5); Sodium 143 mmol/L (135-145); Total Bilirubin 0.6 mg/dL (0.3-1.2); Total Protein 6.9 g/dL (6.2-8.2)
[2023-09-27 15:48] LABS: LDL Cholesterol,Calculated 151.1 mg/dL (0.0-131.0)
== END | disposition home or self-care (01) ==
LOC: LABWHC1 10:43
PROVIDERS: ATTEND Surgery
DX: E66.01 Morbid (severe) obesity due to excess calories (principal); K90.89 Other intestinal malabsorption; E55.9 Vitamin D deficiency, unspecified
CPT/HCPCS: 36415; 80053; 80061; 82306; 82607; 82746; 83540; 84425; 84443; 85027

== ENCOUNTER → 2023-12-18 | Outpatient (CLI) | payer BC ==
--- NOTE | 2023-12-18 19:09 | MM ---
Reason for Exam: Screening (asymptomatic). Last mammogram was performed 2 year(s) and 1 month(s) ago. Patient History: Menarche at age 13. First Full-Term at age 29. Perimenopausal. Patient used Hormonal Contraceptives for 7 years. 07/26/2013, Benign Core Biopsy on the left side. Maternal aunt had breast cancer, age 65. Risk Values: Cookie 5 year model risk: 1.4%. NCI Lifetime model risk: 11.0%. Prior Study Comparison: 04/01/2015 Bilateral Diagnostic Mammogram, [facility]. 11/09/2017 Bilateral Screening Mammogram, [facility]. 11/12/2021 Bilateral MG screening mammo w CAD, [facility]. Tissue Density: The breasts are heterogeneously dense, which may obscure small masses. Findings: Analyzed By CAD. Bilateral areas of asymmetric density are largely unchanged. There is some possible obscured nodularity posterior upper quadrant right breast for which further ultrasound evaluation is recommended. Otherwise, no significant change. Overall Assessment: Incomplete: need additional imaging evaluation, BI-RAD 0 Management: Special View Mammogram of the right breast. Diagnostic Breast Ultrasound of the right breast. Ultrasound targeted to the right upper outer quadrant. [facility] will attempt to contact patient to return for supplemental views and ultrasound if indicated. [facility], , 12/18/2023 7:06 PM. Electronically signed and approved by: Giuseppe Cui M.D. Radiologist
== END | disposition home or self-care (01) ==
LOC: RADMAMWWP 08:07
PROVIDERS: ATTEND Family Medicine
DX: Z12.31 Encounter for screening mammogram for malignant neoplasm of breast
CPT/HCPCS: 77067

== ENCOUNTER → 2023-12-27 | Outpatient (CLI) | payer BC ==
--- NOTE | 2023-12-27 09:13 | MM ---
Reason for Exam: Additional evaluation requested from prior study. Last screening mammogram was performed less than 1 month ago. Patient History: Menarche at age 13. First Full-Term at age 29. Perimenopausal. Patient used Hormonal Contraceptives for 7 years. 07/26/2013, Benign Core Biopsy on the left side. Maternal aunt had breast cancer, age 65. Risk Values: Cookie 5 year model risk: 1.4%. NCI Lifetime model risk: 11.0%. Tissue Density: Right: The breasts are extremely dense, which lowers the sensitivity of mammography. Findings: Analyzed By CAD. Thick nodular glandular tissue in the right upper outer quadrant. Overall Assessment: Incomplete: need additional imaging evaluation, BI-RAD 0 Management: Diagnostic Breast Ultrasound of the right breast. Results were given to the patient verbally at the time of exam. Patient should continue monthly self-breast exams. A clinical breast exam by your physician is recommended on an annual basis. This exam should not preclude additional follow-up of suspicious palpable abnormalities. Note on Cookie scores and lifetime risk: 1. A Cookie score greater than 3% is considered moderate risk. If this is the case, consider specialist referral to assess eligibility for a risk reducing agent. 2. If overall lifetime risk for the development of breast cancer is 20% or higher, the patient may qualify for future screening with alternating mammogram and breast MRI. [facility], , 12/27/2023 9:10 AM. Electronically signed and approved by: Branden Quinonez DO
--- NOTE | 2023-12-27 09:18 | USB ---
Reason for Exam: Additional evaluation requested from abnormal screening. Patient History: Menarche at age 13. First Full-Term at age 29. Perimenopausal. Patient used Hormonal Contraceptives for 7 years. 07/26/2013, Benign Core Biopsy on the left side. Maternal aunt had breast cancer, age 65. Risk Values: Cookie 5 year model risk: 1.4%. NCI Lifetime model risk: 11.0%. Technique: Method: Targeted. Prior Study Comparison: 11/09/2017 Bilateral Screening Mammogram, [facility]. 11/12/2021 Bilateral MG screening mammo w CAD, [facility]. 12/18/2023 Bilateral MG screening mammo w CAD, [facility]. Findings: The upper outer quadrant of the right breast, the axilla of the right breast and the retroareolar of the right breast were scanned. Technique utilized:US breast workup limited RT Image; Ultrasound imaging of: Area of concern, retroareolar region and axilla. Simple appearing cyst at 11:00 8 examination nipple measuring up to 8 mm. No follow-up recommended for this. Hypoechoic lesion that is wider than tall measuring up to 2.1 x 0.8 x 1.9 cm. Short-term follow-up recommended in 3 months for stability. Overall Assessment: Probably benign, BI-RAD 3 Management: Diagnostic Breast Ultrasound of the right breast in 3 months. A clinical breast exam by your physician is recommended on an annual basis and results should be correlated with mammographic findings. This exam should not preclude additional follow-up of suspicious palpable abnormalities. Results were given to the patient verbally at the time of exam. [facility], , 12/27/2023 9:16 AM. Electronically signed and approved by: Branden Quinonez DO
== END ==
LOC: RADMAMWWP 08:27
PROVIDERS: ATTEND Family Medicine
CPT/HCPCS: 77061; 77065

== ENCOUNTER → 2024-01-02 | Outpatient (CLI) | payer BC ==
[2024-01-02 14:34] VITALS: BP 129/84; PULSE 71; RESP 16; TEMP 98.3; BMI 28.1
== END ==
LOC: BARWHC3 14:14
PROVIDERS: ATTEND Surgery
DX: E66.01 Morbid (severe) obesity due to excess calories (principal); Z68.28 Body mass index [BMI] 28.0-28.9, adult
CPT/HCPCS: 99211

== ENCOUNTER → 2024-02-13 | Outpatient (CLI) | payer BC ==
[2024-02-13 14:12] VITALS: BP 128/83; PULSE 67; RESP 16; TEMP 98.1; BMI 28.1
--- NOTE | 2024-02-13 14:41 | P.BASOAP ---
Subjective Progress Note Date: 02/13/24 Principal diagnosis: Morbid obesity Patient returns for recheck. Doing well since last visit. Weight is stayed the same at 180. Still working out regularly. Takes antiacids on an as-needed basis. Taking multivitamin and cholesterol medication only. She is due for 1 year labs. Objective - Vital Signs Vital signs: Vital Signs Temp 98.1 F 02/13/24 14:10 Pulse 67 02/13/24 14:10 Resp 16 02/13/24 14:10 BP 128/83 02/13/24 14:10 Pulse Ox FiO2 Intake & Output 02/12/24 02/13/24 02/13/24 18:59 06:59 18:59 Weight 81.647 kg - Exam Abdomen: Soft, nontender, nondistended Assessment/Plan (1) Morbid obesity with BMI of 40.0-44.9, adult Narrative/Plan: 53-year-old female doing well after prior sleeve gastrectomy. She will be 1 year post sleeve tomorrow. Check annual labs. Continue dietary and exercise regimen. Seen by dietitian today. Recheck 3 months. Plan: Date: 02/13/24 Initial Weight: 120.656 kg Initial BMI: 41.6 Current Weight: 81.647 kg Current BMI: 28.1 Type of Surgery: Vertical Sleeve Gastrectomy Total Volume in Band: Previous Volume: Volume Removed: Volume Added: Band Size:
== END ==
LOC: BARWHC3 13:45
PROVIDERS: ATTEND Surgery
DX: E66.01 Morbid (severe) obesity due to excess calories (principal); Z68.28 Body mass index [BMI] 28.0-28.9, adult; Z87.19 Personal history of other diseases of the digestive system
CPT/HCPCS: 97803; 99211

== ENCOUNTER → 2024-05-21 | Outpatient (CLI) | payer BC ==
[2024-05-21 15:16] VITALS: BP 124/74; PULSE 60; RESP 16; TEMP 98.3; BMI 28.3
--- NOTE | 2024-05-21 15:21 | P.BASOAP ---
Subjective Progress Note Date: 05/21/24 Principal diagnosis: Morbid obesity Patient returns for recheck. Last seen in February. Has been tired lately and dealing with more stress at work. Because of that she has been exercising a bit less. She gained 1 pound. No GERD. No vomiting. No fevers. Patient taking vitamin D and multivitamin daily. Some constipation although improved after homeopathic stool softeners. Last colonoscopy 3 to 4 years ago. Objective - Vital Signs Vital signs: Vital Signs Temp 98.3 F 05/21/24 15:08 Pulse 60 05/21/24 15:08 Resp 16 05/21/24 15:08 BP 124/74 05/21/24 15:08 Pulse Ox FiO2 Intake & Output 05/20/24 05/21/24 05/21/24 18:59 06:59 18:59 Weight 82.1 kg - Exam Abdomen: Soft, nontender, nondistended Assessment/Plan (1) Morbid obesity with BMI of 40.0-44.9, adult Narrative/Plan: 53-year-old female doing well after previous sleeve gastrectomy. Plan follow-up in September. Gradually resume normal exercise routine. Continue monitoring caloric intake. Plan: Date: 05/21/24 Initial Weight: 120.656 kg Initial BMI: 41.6 Current Weight: 82.1 kg Current BMI: 28.3 Type of Surgery: Vertical Sleeve Gastrectomy Total Volume in Band: Previous Volume: Volume Removed: Volume Added: Band Size:
== END ==
LOC: BARWHC3 15:00
PROVIDERS: ATTEND Surgery
DX: E66.01 Morbid (severe) obesity due to excess calories (principal); Z68.41 Body mass index [BMI] 40.0-44.9, adult
CPT/HCPCS: 99211

== ENCOUNTER → 2024-09-17 | Outpatient (CLI) | payer BC ==
[2024-09-17 15:01] VITALS: BP 126/77; PULSE 64; RESP 16; TEMP 98.1; BMI 28.1
--- NOTE | 2024-09-17 15:30 | P.BASOAP ---
Subjective Progress Note Date: 09/17/24 Principal diagnosis: Morbid obesity Patient returns for recheck. Last seen in May. Doing well. Weight has been about the same. Down 1 pound. Denies nausea or vomiting. No GERD symptoms. Does not take antiacids. Only medication she is taking now is for cholesterol. Patient is exercising daily. Objective - Vital Signs Vital signs: Vital Signs Temp 98.1 F 09/17/24 14:58 Pulse 64 09/17/24 14:58 Resp 16 09/17/24 14:58 BP 126/77 09/17/24 14:58 Pulse Ox FiO2 Intake & Output 09/16/24 09/17/24 09/17/24 18:59 06:59 18:59 Weight 81.647 kg - Exam Abdomen: Soft, nontender, nondistended Assessment/Plan (1) Morbid obesity with BMI of 40.0-44.9, adult Narrative/Plan: Patient doing well at this time. Continue dietary and exercise regimen. Plan recheck in February. Plan: Date: 09/17/24 Initial Weight: 120.656 kg Initial BMI: 41.6 Current Weight: 81.647 kg Current BMI: 28.1 Type of Surgery: Vertical Sleeve Gastrectomy Total Volume in Band: Previous Volume: Volume Removed: Volume Added: Band Size:
== END ==
LOC: BARWHC3 14:49
PROVIDERS: ATTEND Surgery
DX: E66.01 Morbid (severe) obesity due to excess calories (principal); Z68.28 Body mass index [BMI] 28.0-28.9, adult
CPT/HCPCS: 99211